=== PATIENT | male | born 1950 | race Two or more races ===

== ENCOUNTER 2024-09-01 00:13 | Inpatient (IN) | payer OTHER ==
[~2024-09-01] VITALS: Ht 160 cm; Wt 71.9 kg
[2024-09-01] VITALS (7 sets, daily range): BP systolic 134–146; BP diastolic 62–71; PULSE 51–85; RESP 17–20; TEMP 97.8–97.9; O2SAT 97–100
--- NOTE | 2024-09-01 00:44 | ED.PDOC ---
GI ASSESSMENT HPI Comments 74 year old male presents to the ED via EMS with a chief complaint of abdominal pain onset 3 days. Per EMS, patient is transferred from [facility] for cardiac workup. Patient went to [facility] due to abdominal pain radiating to chest as well as nausea, poor appetite for the past 3 days. For the past 2 weeks, patient has been experiencing bilateral eye itchiness, tried OTC eye drops with no improvement of symptoms. No other symptoms or modifying factors present at this time. Chief Complaint: Abdominal Pain Time Seen by MD: 00:35 Reviewed Notes: Medications, Allergies Allergies: Coded Allergies: Penicillins (Verified Allergy, Unknown, 09/01/24) Information Source: Patient, Emergency Med Personnel Mode of Arrival: EMS Timing: Days Duration: Since onset Prehospital treatment: None Quality: Sharp Severity: Moderate Recent: None Recent Hx of: None Pain Location: RUQ, None Associated sign and symptoms: Nausea, Abdominal Pain Past Medical History PAST MEDICAL HISTORY: Denies Surgical History: Denies all surgeries Family History Family History: Reviewed,noncontributory to illness, No family hx of Cancer, No family hx of DM, No family hx of Heart jolie, No family hx of HTN, No family hx ofKidney jolie, No family hx of Liver jolie, No family hx of Lung jolie, No family hx of Stroke Social History Smoker: Non-Smoker Alcohol: Denies ETOH Use Drugs: Denies Drug Use Lives In: Home Constitutional: denies: chills, diaphoresis, fatigue, fever, malaise, sweats, weakness, others EENTM: denies: blurred vision, double vision, ear bleeding, ear discharge, ear drainage, ear pain, ear ringing, eye pain, eye redness, hearing loss, mouth pain, mouth swelling, nasal discharge, nose bleeding, nose congestion, nose pain, photophobia, tearing, throat pain, throat swelling, voice changes, others Respiratory: denies: cough, hemoptysis, orthopnea, SOB at rest, shortness of breath, SOB with excertion, stridor, wheezing, others Cardiovascular: reports: chest pain; denies: dizzy spells, diaphoresis, Dyspnea on exertion, edema, irregular heart beat, left arm pain, lightheadedness, palpitations, PND, syncope, others Gastrointestinal: reports: abdominal pain, nausea, poor appetite; denies: abdomen distended, blood streaked bowels, constipated, diarrhea, dysphagia, difficulty swallowing, hematemesis, melena, poor fluid intake, rectal bleeding, rectal pain, vomiting, others Genitourinary: denies: burning, dysuria, flank pain, frequency, hematuria, incontinence, penile discharge, penile sore, pain, testicle pain, testicle swelling, urgency, others Neurological: denies: dizziness, fainting, headache, left sided numbness, left sided weakness, numbness, paresthesia, pre-existing deficit, right sided numbness, right sided weakness, seizure, speech problems, tingling, tremors, weakness, others Musculoskeletal: denies: back pain, gout, joint pain, joint swelling, muscle pain, muscle stiffness, neck pain, others Integumetry: denies: bruises, change in color, change in hair/nails, dryness, laceration, lesions, lumps, rash, wounds, others Allergic/Immunocompromised: denies: Difficulty Healing, Frequent Infections, Hives, Itching, others Hematologic/Lymphatic: denies: anemia, blood clots, easy bleeding, easy bruising, swollen glands, others Endocrine: denies: excessive hunger, excessive sweating, excessive thirst, excessive urination, flushing, intolerance to cold, intolerance to heat, unexplained weight gain, unexplained weight loss, others Psychiatric: denies: anxiety, bipolar disorder, depression, hopeless, panic disorder, schizophrenia, sleepless, suicidal, others All Other Systems: Reviewed and Negative Physical Exam General Appearance: Normal HEENT: Normal ENT Inspection, Pharynx Normal, TMs Normal Neck: Full Range of Motion, Non-Tender, Normal, Normal Inspection Respiratory: Chest Non-Tender, Lungs Clear, No Accessory Muscle Use, No Respiratory Distress, Normal Breath Sounds Cardiovascular: No Edema, No JVD, No Murmur, No Gallop, Normal Peripheral Pulses, Regular Rate/Rhythm Breast Exam: Deferred Gastrointestinal: No Organomegaly, Non Tender, No Pulsatile Mass, Normal Bowel Sounds, Soft Genitalia: Deferred Pelvic: Deferred Rectal: Deferred Extremities: No calf tenderness, Normal capillary refill, Normal inspection, Normal range of motion, Non-tender, No pedal edema Musculoskeletal : Apperance: Normal Neurologic: Alert, 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 Was a procedure done?: No GI differential Dx Differential Diagnosis: Gastritis/PUD, Gastroenteritis, Electrolyte Imbalance X-Ray, Labs, Meds, VS Vital Signs Date Time Temp Pulse Resp B/P (MAP) Pulse Ox O2 Delivery O2 Flow Rate FiO2 09/01/24 01:15 74 20 100 Room Air* 0 21 09/01/24 01:00 98.3 74 20 135/56 (82) 100 98.3 09/01/24 00:35 97.9 79 18 136/69 (91) 97 97.9 09/01/24 00:24 58 Lab Test 09/01/24 01:40 09/01/24 00:44 Range/Units Troponin I High Sensitivity 1326 *H 1294 *H </=54 ng/L White Blood Count 16.5 H 4.4-10.8 10^3/uL Red Blood Count 3.36 L 4.5-5.90 10^6/uL Hemoglobin 10.4 L 13.5-17.5 g/dL Hematocrit 31.8 L 41.0-53.0 % Mean Corpuscular Volume 94.6 80.0-100.0 fL Mean Corpuscular Hemoglobin 31.0 28.0-32.0 pg Mean Corpuscular Hemoglobin Concent 32.7 32.0-36.0 g/dL Red Cell Distribution Width 15.1 H 11.8-14.3 % Platelet Count 310 140-450 10^3/uL Mean Platelet Volume 7.5 6.9-10.8 fL Neutrophils (%) (Auto) 84.5 H 37.0-80.0 % Lymphocytes (%) (Auto) 7.4 L 10.0-50.0 % Monocytes (%) (Auto) 8.0 0.0-12.0 % Eosinophils (%) (Auto) 0.0 0.0-7.0 % Basophils (%) (Auto) 0.1 0.0-2.0 % Neutrophils # (Auto) 13.9 H 1.6-8.6 10 ^3/uL Lymphocytes # (Auto) 1.2 0.4-5.4 10 ^3/uL Monocytes # (Auto) 1.3 0-1.3 10 ^3/uL Eosinophils # (Auto) 0 0-0.8 10 ^3/uL Basophils # (Auto) 0 0-0.2 10 ^3/uL Nucleated Red Blood Cells 0.0 % Prothrombin Time 11.3 9.3-11.8 sec Prothrombin Time INR 1.07 0.9-1.15 Activated Partial Thromboplast Time 33.9 24.5-34.5 SEC Sodium Level 142 136-145 mmol/L Potassium Level 3.8 3.5-5.1 mmol/L Chloride Level 108 H 98-107 mmol/L Carbon Dioxide Level 22 20-31 mmol/L Anion Gap 12 5-15 Blood Urea Nitrogen 20 9-23 mg/dL Creatinine 0.61 L 0.700-1.30 mg/dL Glomerular Filtration Rate Calc 101 >90 mL/min BUN/Creatinine Ratio 32.8 H 10.0-20.0 Serum Glucose 159 H 74-106 mg/dL Lactic Acid Level 1.7 0.4-2.0 mmol/L Calcium Level 9.2 8.7-10.4 mg/dL Total Bilirubin 0.5 0.2-1.0 mg/dL Aspartate Amino Transferase (AST) 17 13-40 U/L Alanine Aminotransferase (ALT) 18 7-40 U/L Alkaline Phosphatase 76 46-116 U/L Total Protein 7.1 5.7-8.2 g/dL Albumin 3.9 3.2-4.8 g/dL Current Medications Medications (Trade) Dose Ordered Sig/Elier Route Start Time Stop Time Status Last Admin Sodium Chloride 1,000 ml @ 1,000 mls/hr Q1H ONCE IV 09/01/24 00:45 09/01/24 01:44 DC 09/01/24 02:00 Heparin Sodium (Porcine) 4,000 units ONCE ONCE IV 09/01/24 01:00 09/01/24 01:01 DC 09/01/24 01:57 Heparin Sodium/ Dextrose 250 ml @ 8 mls/hr Q24H IV 09/01/24 01:00 09/01/24 01:59 Time of 1ST Reevaluation: 01:05 Reevaluation 1ST: Unchanged Patient Education/Counseling: Diagnosis, Treatment, Prognosis Family Education/Counseling: No Family Present SEPSIS Sepsis Screen Physician Orders Urinalysis (09/01/24 00:32) Ct Ab Pel Wo Con-No Oral Or Iv (09/01/24 00:32) Troponin-I Hs (09/01/24 03:32) Order Routine Aptt (09/01/24 00:55) Platelet Monitoring (09/01/24 00:58) Heparin Per Standardized Proce (09/01/24 00:58) Discontinue All Im Injections (09/01/24 00:58) Heparin Drip/D5w 100units/Ml (09/01/24 01:00) Stat Ekg For Chest Pain (09/01/24 00:58) PTPTT (09/01/24 08:00) Electrocardigram (09/01/24 02:45) Vital Signs Date Time Temp Pulse Resp B/P (MAP) Pulse Ox O2 Delivery O2 Flow Rate FiO2 09/01/24 01:15 74 20 100 Room Air* 0 21 09/01/24 01:00 98.3 74 20 135/56 (82) 100 98.3 09/01/24 00:35 97.9 79 18 136/69 (91) 97 97.9 09/01/24 00:24 58 Laboratory Tests Test 09/01/24 00:44 Lactic Acid Level 1.7 mmol/L (0.4-2.0) White Blood Count 16.5 10^3/uL (4.4-10.8) H Medications Medications Dose Ordered Sig/Elier Route Start Time Stop Time Status Last Admin Dose Admin Heparin Sodium (Porcine) 4,000 units ONCE ONCE IV 09/01/24 01:00 09/01/24 01:01 DC 09/01/24 01:57 Heparin Sodium/ Dextrose 250 ml @ 8 mls/hr Q24H IV 09/01/24 01:00 09/01/24 01:59 Sodium Chloride 1,000 ml @ 1,000 mls/hr Q1H ONCE IV 09/01/24 00:45 09/01/24 01:44 DC 09/01/24 02:00 Departure 1 Departure Time of Disposition: 03:03 ([place] authorization to admit at [facility] [phone].Patient was a transfer from outside hospital for NSTEMI and concern for acute cholecystitis. Patient had an ultrasound performed at the outside hospital that reportedly did not have acute cholecystitis. Patient is still having right upper quadrant pain elevated troponins. We will start a heparin drip and admit patient for further workup) Impression: Primary Impression: NSTEMI (non-ST elevated myocardial infarction) Additional Impressions: Right upper quadrant pain Cholelithiasis Qualified Codes: K80.00 - Calculus of gallbladder with acute cholecystitis without obstruction Disposition: ADMITTED INPATIENT Admit to: Med Surg Condition: Guarded Critical Care Note Critical Care Time?: Yes Critical care comment: NSTEMI Authorized and Performed by: Devora Michele MD Total critical care time: Approximately 44 minutes Due to a high probability of clinically significant, life threatening deterioration, the patient required my highest level of preparedness to intervene emergently and I personally spent this critical care time directly and personally managing the patient. This critical care time included obtaining a h istory; examining the patient; pulse oximetry; ordering and review of studies; arranging urgent treatment with development of a management plan; evaluation of patient's response to treatment; frequent reassessment; and, discussions with other providers. This critical care time was performed to assess and manage the high probability of imminent, life-threatening deterioration that could result in multi-organ failure. It was exclusive of separately billable procedures and treating other patients and teaching time. Please see my other sections and the rest of the note for further information on patient assessment and treatment. Stability Stability form required: No I personally scribed for DEVORA MICHELE MD ([email or web address]) on 09/01/24 at 00:44. Electronically submitted by Monica Llanes ([email or web address]). DEVORA MICHELE MD Sep 01, 2024 00:44
[2024-09-01] MEDS: ONDANSETRON HCL 4 MG/2 ML VIAL IV ONE ×2 (00:45→12:24)
[2024-09-01] MEDS: MORPHINE SULFATE 4 MG/ML SYR/VIAL IV ONE (00:45)
[2024-09-01 00:55] LABS: Hematocrit 31.8 % (41.0-53.0); Hemoglobin 10.4 g/dL (13.5-17.5); Mean Corpuscular Hemoglobin 31.0 pg (28.0-32.0); Mean Corpuscular Volume 94.6 fL (80.0-100.0); Nucleated Red Blood Cells % 0.0 %
[2024-09-01 01:14] LABS: Alanine Aminotransferase 18 U/L (7-40); Albumin 3.9 g/dL (3.2-4.8); Alkaline Phosphatase 76 U/L (46-116); Anion Gap 12 (5-15); BUN/Creatinine Ratio 32.8 (10.0-20.0); Blood Urea Nitrogen 20 mg/dL (9-23); Calcium 9.2 mg/dL (8.7-10.4); Carbon Dioxide 22 mmol/L (20-31); Potassium 3.8 mmol/L (3.5-5.1); Sodium 142 mmol/L (136-145); Total Protein 7.1 g/dL (5.7-8.2)
[2024-09-01 01:15] LABS: Bilirubin, Total 0.5 mg/dL (0.2-1.0)
[2024-09-01 01:20] LABS: INR 1.07 (0.9-1.15); Partial Thromboplastin Time 33.9 SEC (24.5-34.5); Prothrombin Time 11.3 sec (9.3-11.8)
[2024-09-01 01:24] LABS: Chloride 108 mmol/L (98-107); Glucose 159 mg/dL (74-106)
[2024-09-01] MEDS: HEPARIN SODIUM (PORCINE) 5000 UNITS/ML 1ML VIAL IV ONE (01:57)
[2024-09-01] MEDS: HEPARIN DRIP/D5W 100UNITS/ML 250 ML IV SCH ×2 (01:59→09:36)
[2024-09-01] MEDS: SODIUM CHLORIDE 0.9% 1,000 ML IV ONE (02:00)
--- NOTE | 2024-09-01 02:46 | DVH ---
Exam: CT CT AB PEL WO CON-NO ORAL OR IV History: ruq pain Comparison Study: None TECHNIQUE: Multidetector CT of the abdomen and pelvis was performed from lung bases to pubic symphysi s. Imaging was performed without IV contrast. Axial, coronal and sagittal multiplanar reformats were obtained from the axial data set by the technologist. Radiation optimization: All CT scans at this facility use at least one of these dose optimization carli hniques: automated exposure control mA and/or kV adjustment per patient size (includes targeted exam s where dose is matched to clinical indication) or iterative reconstruction. Radiation Dose Information: CT Dose: CTDI volume is 9.2 mGy. Dose-length product is 599.3 mGy*cm FINDINGS: Evaluation of solid organs is limited due to lack of intravenous contrast use. Imaged portions of the lung bases appear unremarkable. There are marked coronary artery calcificatio ns. Small hiatal hernia. The liver, spleen, pancreas and adrenal glands appear unremarkable. Retained contrast is noted in the renal collecting system. There is no evidence of hydronephrosis. The gallbladder is mildly distended measuring 3.7 cm in diameter. Possible sludge or polyp at the gal lbladder neck. Common bile duct is mildly prominent measuring 0.8 cm. No evidence of bowel obstruction or focal bowel wall thickening. Large amount of intracolonic stool. Fat containing umbilical hernia. Urinary bladder is collapsed and presence of a Gastelum catheter. Courtney re degenerative changes of the lumbar spine without suspicious osseous lesion. IMPRESSION: 1. Prominent gallbladder with either sludge or polyp in the gallbladder neck. Right upper quadrant u ltrasound is recommended to assess for cholecystitis. 2. Large amount of intracolonic stool. 3. Severe coronary artery calcifications.
--- NOTE | 2024-09-01 05:54 | ECG ---
[facility] Test Date: 2024-09-01 Test Time: 00:24:17 Pat Name: GILMAR ELLSWORTH Department: ED Room: 0218T Gender: M Workforce Planner: JUDITH : 1950 Requested By: DEVORA RUIZ Order Number: [id number] Reading MD: Willian Eid Measurements Intervals [place] Rate: 58 P: 15 UT: 422 QRS: 17 QRSD: 119 T: 175 QT: 435 QTc: 428 Interpretive Statements Prolonged UT intervalSinus rhythm Nonspecific intraventricular conduction delay Probable anteroseptal infarct, old Repol abnrm suggests ischemia, lateral leads Electronically Signed On 09-02-2024 10:29:29 PDT by Willian Eid Please click the below link to view image of tracing.
[2024-09-01 07:27] LABS: Urine Protein, UAD 1+ (Negative)
--- NOTE | 2024-09-01 08:17 | DVH ---
INDICATION: r/o tiffanie TECHNIQUE: Multiple real-time sonographic images of the abdomen were obtained. COMPARISON: None FINDINGS: The liver is homogenous in echogenicity. The liver measures 14cm. No intrahepatic biliary ductal dilatation is noted. The gallbladder wall measures 0.4 cm and is unremarkable. Gallstones are noted .v No pericholecystic fluid is noted. The right kidney measures 12cm. No hydronephrosis. The pancreas is not well visualized due to obscuration from bowel gas. The visualized portions of the IVC and aorta are grossly unremarkable. IMPRESSION: Gallstones.
[2024-09-01 08:42] LABS: INR 1.12 (0.9-1.15); Partial Thromboplastin Time 48.0 SEC (24.5-34.5); Prothrombin Time 11.7 sec (9.3-11.8)
--- NOTE | 2024-09-01 09:32 | CONS ---
Pharmacy Clinical Information: INCREASE HEPARIN DRIP RATE FROM 800 UNITS/HR TO 1000 UNITS/HR PER APTT OF 48.0 (SUBTHERAPEUTIC) NEXT APTT DRAW SCHEDULED FOR 1530 PER RX PROTOCOL YUE HAWK PHARMACIST Sep 01, 2024 09:32
--- NOTE | 2024-09-01 10:24 | DVHINCON2 ---
DANIS QIU [facility] 09/01/24 1024: Date Seen: Sep 01, 2024 Referring Physician NASH Tuttle Reason for Consultation Elevated troponin History of Present Illness This is a 74-year-old male patient who presents with chief complaint of abdominal pain for three days. The patient was initially seen at [facility] and was transferred to this facility for higher level of care. The patient reports his abdominal pain began three days ago with associated diarrhea. He describes the pain as sharp in nature and located to his epigastric region. He decided to go to the emergency room for further evaluation. While in the emergency room, the patient states that the pain began radiating up into his chest area. The patient states that the pain initially began in his umbilical region traveled to his right abdomen and up to the right side of his chest. At the time of assessment, he denies any pain. Cardiology h as been consulted at this time for elevated troponin. Initial twelve lead electrocardiogram reveals sinus bradycardia with first-degree AV block and nonspecific ST changes to lateral leads. Initial troponin level of 1294ng/L. Significant past medical history includes hypertension, dyslipidemia, type 2 diabetes mellitus, chronic anemia, and thyroid disease. The patient denies fo llowing up with a personal care attendant in the outpatient setting. Past Medical History Past medical history reviewed. No other significant than mentioned above. Past Surgical History Right groin skin removal due to infection??---the patient is unsure of the name of the procedure Family History Family history reviewed. Social History Denies the use of tobacco, alcohol or illicit drugs. Allergies: Coded Allergies: Penicillins (Verified Allergy, Unknown, 09/01/24) Home Meds Unable to Obtain Active Prescriptions or Reported Meds Home Meds Home medications reviewed. Current Medications Current Medications Medications (Trade) Dose Ordered Sig/Elier Route PRN Reason Start Time Stop Time Status Last Admin Heparin Sodium/ Dextrose 250 ml @ 8 mls/hr Q24H IV 09/01/24 01:00 09/01/24 09:28 DC 09/01/24 01:59 Heparin Sodium/ Dextrose 250 ml @ 10 mls/hr Q24H IV 09/01/24 09:30 09/01/24 09:36 Review of Systems Constitutional: No symptom reported Ears, Nose, & Throat: No symptom reported Eyes: No symptom reported Neurological: No symptoms reported Pulmonary/Respiratory: No symptoms reported Cardiovascular: No symptom reported Gastrointestinal: Abdominal pain, nausea Genitourinary: No symptom reported Musculoskeletal: No symptom reported Skin: No symptom reported Psychiatric: No symptom reported Endocrine: No symptom reported Hematologic/Lymphatic: No symptom reported Vital Signs Vital Signs Date Time Temp Pulse Resp B/P (MAP) Pulse Ox O2 Delivery O2 Flow Rate FiO2 09/01/24 08:01 68 09/01/24 08:00 98.1 19 131/47 (75) 99 98.1 09/01/24 08:00 Room Air* 0 21 Physical Exam General Appearance: Cooperative. Well-developed. Well-nourished. No acute distress. Pulmonary/Respiratory: Clear, bilateral breaths sounds. Cardiovascular/Chest: Regular rate and rhythm. Peripheral Pulses: 2+ Radial (R). 2+ Radial (L). 2+ Pedal (R). 2+ Pedal (L) Abdominal Exam: Normal bowel sounds. Ankle Exam: Negative ankle edema Lower extremities: Negative lower extremity edema Neuro/Mental Status: A/OX4, coherent. Thoughts/Psych: Normal thought pattern. Appropriate mood and affect. Good judgment and insight. Appearance: No acute distress. Skin Exam: Right groin wound, oozing. Skin warm and dry Labs/Diagnostic Data Labs Test 09/01/24 08:11 09/01/24 07:01 09/01/24 03:44 09/01/24 00:44 Range/Units Prothrombin Time 11.7 9.3-11.8 sec Prothrombin Time INR 1.12 0.9-1.15 Activated Partial Thromboplast Time 48.0 H 24.5-34.5 SEC D-Dimer, Quantitative 0.71 H 0.0-0.49 mg/L FEU Urine Color Yellow Yellow Urine Clarity Clear Clear Urine pH 5.5 5.0-9.0 Urine Specific [place] 1.035 1.001-1.035 Urine Protein 1+ H Negative Urine Ketones 2+ H Negative Urine Blood 1+ H Negative /uL Urine Nitrite Negative Negative Urine Bilirubin Negative Negative Urine Urobilinogen Normal Negative mg/dL Urine Leukocyte Esterase 1+ Negative /uL Urine RBC 12 0 - 3 /hpf Urine Microscopic WBC 10 H 0-3 /HPF Urine Squamous Epithelial Cells None seen <5 /hpf Urine Bacteria None seen None Seen /hpf Urine Mucus Few None Seen Urine Glucose Normal Normal mg/dL Troponin I High Sensitivity 953 *H </=54 ng/L White Blood Count 16.5 H 4.4-10.8 10^3/uL Red Blood Count 3.36 L 4.5-5.90 10^6/uL Hemoglobin 10.4 L 13.5-17.5 g/dL Hematocrit 31.8 L 41.0-53.0 % Mean Corpuscular Volume 94.6 80.0-100.0 fL Mean Corpuscular Hemoglobin 31.0 28.0-32.0 pg Mean Corpuscular Hemoglobin Concent 32.7 32.0-36.0 g/dL Red Cell Distribution Width 15.1 H 11.8-14.3 % Platelet Count 310 140-450 10^3/uL Mean Platelet Volume 7.5 6.9-10.8 fL Neutrophils (%) (Auto) 84.5 H 37.0-80.0 % Lymphocytes (%) (Auto) 7.4 L 10.0-50.0 % Monocytes (%) (Auto) 8.0 0.0-12.0 % Eosinophils (%) (Auto) 0.0 0.0-7.0 % Basophils (%) (Auto) 0.1 0.0-2.0 % Neutrophils # (Auto) 13.9 H 1.6-8.6 10 ^3/uL Lymphocytes # (Auto) 1.2 0.4-5.4 10 ^3/uL Monocytes # (Auto) 1.3 0-1.3 10 ^3/uL Eosinophils # (Auto) 0 0-0.8 10 ^3/uL Basophils # (Auto) 0 0-0.2 10 ^3/uL Nucleated Red Blood Cells 0.0 % Sodium Level 142 136-145 mmol/L Potassium Level 3.8 3.5-5.1 mmol/L Chloride Level 108 H 98-107 mmol/L Carbon Dioxide Level 22 20-31 mmol/L Anion Gap 12 5-15 Blood Urea Nitrogen 20 9-23 mg/dL Creatinine 0.61 L 0.700-1.30 mg/dL Glomerular Filtration Rate Calc 101 >90 mL/min BUN/Creatinine Ratio 32.8 H 10.0-20.0 Serum Glucose 159 H 74-106 mg/dL Lactic Acid Level 1.7 0.4-2.0 mmol/L Calcium Level 9.2 8.7-10.4 mg/dL Total Bilirubin 0.5 0.2-1.0 mg/dL Aspartate Amino Transferase (AST) 17 13-40 U/L Alanine Aminotransferase (ALT) 18 7-40 U/L Alkaline Phosphatase 76 46-116 U/L Total Protein 7.1 5.7-8.2 g/dL Albumin 3.9 3.2-4.8 g/dL Assessment NSTEMI, rule out coronary artery disease Rule out structural heart disease Hypertension Dyslipidemia Cholelithiasis Thyroid disease Type 2 diabetes mellitus Plan/Recommendation We will proceed with the following plan/recommendations (): * Transthoracic echocardiogram to evaluate cardiac function * Chest pain protocol * HEART score: 8 points (high score) * LISA score: 3 points * Continue heparin drip per ACS protocol * Lipid-lowering agent * Close Cardiac surveillance Patient seen and examined at bedside with . Given the patient's elevated troponin, comorbidities, and 12 lead electrocardiogram, the patient may benefit from a coronary angiogram with left heart catheterization. The procedure was discussed with the patient in full detail including risks and benefits. Risks include but are not limited to bleeding, contrast-induced nephropathy, stroke, and even . The patient understands and is agreeable to undergo the procedure. We will schedule the patient at soonest availability. The patient is currently also being worked up for acute cholecystitis. Consider appropriate consultations for further workup. Thank you for allowing us to care for this patient. Please call with any questions or concerns. Critical care time spent: 44 minutes This medical document was created using an electronic medical record system with voice recognition software and computerized dictation system. Although this document has been carefully reviewed, there might still be some phonetic and typographical errors. Occasional wrong-word or ``sound-alike substitutions may have occurred due to the inherent limitations of voice recognition software. These areas are purely typographical due to imperfections of the software programs and do not reflect any compromise in the patient's medical care. Please read the chart carefully and recognize, using context, where these substitutions have occurred. Plan discussed with: Patient NYHA Physical activity limitations: NA Date of Service: Sep 01, 2024 Billing Provider: DANIS QIU Cardiology Common Codes: 49612-[id number] INP/OBS CARE (High) Cardiology Consultation Codes: 19262-LODKBMCOI CONSULT <45MIN LUIS ENRIQUE CHAMBERLAIN MD 09/01/24 1830: Allergies: Coded Allergies: Penicillins (Verified Allergy, Unknown, 09/01/24) Home Meds Unable to Obtain Active Prescriptions or Reported Meds Plan/Recommendation r/o acute tiffanie, no surgeon has been consulted, this needs to be done yair, C for calcium,nstemi and abnormal ecg avoid avn agents heparin gtt high risk pt , he agrees to plan with informed consent Plan discussed with: Patient DANIS QIU Sep 01, 2024 10:24 LUIS ENRIQUE CHAMBERLAIN MD Sep 01, 2024 18:30
[2024-09-01] MEDS ORDERED: ONDANSETRON HCL 4 MG/2 ML VIAL IV PRN (10:45)
[2024-09-01] MEDS ORDERED: MORPHINE SULFATE 4 MG/ML SYR/VIAL IV PRN (10:45)
[2024-09-01] MEDS ORDERED: MORPHINE SULFATE INJ 2 MG/ml SYRG IV PRN (10:45)
[2024-09-01] MEDS ORDERED: NITROGLYCERIN 0.4 MG SL TAB SL PRN ×2 (10:45)
--- NOTE | 2024-09-01 10:55 | DVHHP2 ---
History of Present Illness Reason for Visit: Abdominal pain with nausea and chest pain History of Present Illness Tani Easton is a 74-year-old male with past medical history of hypertension, hyperlipidemia, diabetes, and right groin surgery for a past infection (patient does not recall when) who presents to the ED with abdominal pain with nausea and poor appetite for 3 days as well as chest pain. Patient states that he was transferred from [place] and was experiencing the symptoms. However he states upon examination there is no chest pain or abdominal pain at this time. Patient reports that he is wheelchair-bound since January of 2024. Patient denies any shortness of breath, fever, chills, lightheadedness, weakness, dizziness, recent trauma or injury, recent ingestion of spoiled food, recent travels, recent sick contacts, vomiting, diarrhea, or lightheadedness. Cardiovascular: HTN, hyperipidemia Endocrine: Diabetes Past Surgical History: Other (Right leg groin surgery for infection patient reports) Family History: DM, Other (Mom and dad with diabetes) Smoke: No ALCOHOL: none Drugs: None Lives: with Family Domestic Violence: Neg Review of Systems Cardiovascular: Chest Pain Gastrointestinal: Nausea, Abdominal Pain Allergies: Coded Allergies: Penicillins (Verified Allergy, Unknown, 09/01/24) Medications Current Medications Medications Dose Ordered Sig/Elier Route Start Time Stop Time Status Last Admin Dose Admin Heparin Sodium/ Dextrose 250 ml @ 10 mls/hr Q24H IV 09/01/24 09:30 09/01/24 09:36 10 MLS/HR Ceftriaxone Sodium 50 ml @ 100 mls/hr DAILY@09 IV 09/01/24 10:45 UNV Aspirin 81 mg DAILY PO 09/02/24 10:00 UNV Atorvastatin Calcium 40 mg HS PO 09/01/24 22:00 UNV Morphine Sulfate 2 mg Q30MP PRN IV 09/01/24 10:45 UNV Acetaminophen 650 mg Q6HP PRN PO 09/01/24 10:45 UNV Nitroglycerin 0.4 mg Q5MINP PRN SL 09/01/24 10:45 UNV Ondansetron HCl 4 mg Q4HP PRN IV 09/01/24 10:45 UNV Nitroglycerin 0.4 mg Q5MINP PRN SL 09/01/24 10:45 UNV Morphine Sulfate 2 mg Q30M PRN IV 09/01/24 10:45 UNV Exam Vital Signs Vital Signs Date Time Temp Pulse Resp B/P (MAP) Pulse Ox O2 Delivery O2 Flow Rate FiO2 09/01/24 08:01 68 09/01/24 08:00 98.1 19 131/47 (75) 99 98.1 09/01/24 08:00 Room Air* 0 21 General Appearance: Alert, Oriented X3, Cooperative, No acute distress HEENT: Atraumatic, PERRLA, EOMI, Mucous membr. moist/pink Respiratory: Clear to auscultation, Normal air movement Cardiovascular: Normal S1, Normal S2 Abdominal: Normal bowel sounds, Soft Extremities: No edema, Normal pulses Skin: No significant lesion Neuro: Normal gait, Normal speech, Strength at 5/5 X4 ext, Normal tone, Sensation intact Psych/Mental Status: Mental status NL, Mood NL Labs/Xrays Labs Test 09/01/24 10:34 09/01/24 08:11 09/01/24 07:01 09/01/24 03:44 Range/Units Prothrombin Time 11.7 9.3-11.8 sec Prothrombin Time INR 1.12 0.9-1.15 Activated Partial Thromboplast Time 48.0 H 24.5-34.5 SEC D-Dimer, Quantitative 0.71 H 0.0-0.49 mg/L FEU Urine Color Yellow Yellow Urine Clarity Clear Clear Urine pH 5.5 5.0-9.0 Urine Specific [place] 1.035 1.001-1.035 Urine Protein 1+ H Negative Urine Ketones 2+ H Negative Urine Blood 1+ H Negative /uL Urine Nitrite Negative Negative Urine Bilirubin Negative Negative Urine Urobilinogen Normal Negative mg/dL Urine Leukocyte Esterase 1+ Negative /uL Urine RBC 12 0 - 3 /hpf Urine Microscopic WBC 10 H 0-3 /HPF Urine Squamous Epithelial Cells None seen <5 /hpf Urine Bacteria None seen None Seen /hpf Urine Mucus Few None Seen Urine Glucose Normal Normal mg/dL Troponin I High Sensitivity 953 *H </=54 ng/L Test 09/01/24 00:44 Range/Units White Blood Count 16.5 H 4.4-10.8 10^3/uL Red Blood Count 3.36 L 4.5-5.90 10^6/uL Hemoglobin 10.4 L 13.5-17.5 g/dL Hematocrit 31.8 L 41.0-53.0 % Mean Corpuscular Volume 94.6 80.0-100.0 fL Mean Corpuscular Hemoglobin 31.0 28.0-32.0 pg Mean Corpuscular Hemoglobin Concent 32.7 32.0-36.0 g/dL Red Cell Distribution Width 15.1 H 11.8-14.3 % Platelet Count 310 140-450 10^3/uL Mean Platelet Volume 7.5 6.9-10.8 fL Neutrophils (%) (Auto) 84.5 H 37.0-80.0 % Lymphocytes (%) (Auto) 7.4 L 10.0-50.0 % Monocytes (%) (Auto) 8.0 0.0-12.0 % Eosinophils (%) (Auto) 0.0 0.0-7.0 % Basophils (%) (Auto) 0.1 0.0-2.0 % Neutrophils # (Auto) 13.9 H 1.6-8.6 10 ^3/uL Lymphocytes # (Auto) 1.2 0.4-5.4 10 ^3/uL Monocytes # (Auto) 1.3 0-1.3 10 ^3/uL Eosinophils # (Auto) 0 0-0.8 10 ^3/uL Basophils # (Auto) 0 0-0.2 10 ^3/uL Nucleated Red Blood Cells 0.0 % Sodium Level 142 136-145 mmol/L Potassium Level 3.8 3.5-5.1 mmol/L Chloride Level 108 H 98-107 mmol/L Carbon Dioxide Level 22 20-31 mmol/L Anion Gap 12 5-15 Blood Urea Nitrogen 20 9-23 mg/dL Creatinine 0.61 L 0.700-1.30 mg/dL Glomerular Filtration Rate Calc 101 >90 mL/min BUN/Creatinine Ratio 32.8 H 10.0-20.0 Serum Glucose 159 H 74-106 mg/dL Lactic Acid Level 1.7 0.4-2.0 mmol/L Calcium Level 9.2 8.7-10.4 mg/dL Total Bilirubin 0.5 0.2-1.0 mg/dL Aspartate Amino Transferase (AST) 17 13-40 U/L Alanine Aminotransferase (ALT) 18 7-40 U/L Alkaline Phosphatase 76 46-116 U/L Total Protein 7.1 5.7-8.2 g/dL Albumin 3.9 3.2-4.8 g/dL INDICATION: r/o tiffanie TECHNIQUE: Multiple real-time sonographic images of the abdomen were obtained. COMPARISON: None FINDINGS: The liver is homogenous in echogenicity. The liver measures 14cm. No intrahepatic biliary ductal dilatation is noted. The gallbladder wall measures 0.4 cm and is unremarkable. Gallstones are noted .v No pericholecystic fluid is noted. The right kidney measures 12cm. No hydronephrosis. The pancreas is not well visualized due to obscuration from bowel gas. The visualized portions of the IVC and aorta are grossly unremarkable. IMPRESSION: Gallstones. Exam: CT CT AB PEL WO CON-NO ORAL OR IV History: ruq pain Comparison Study: None TECHNIQUE: Multidetector CT of the abdomen and pelvis was performed from lung bases to pubic symphysis. Imaging was performed without IV contrast. Axial, coronal and sagittal multiplanar reformats were obtained from the axial data set by the technologist. Radiation optimization: All CT scans at this facility use at least one of these dose optimization techniques: automated exposure control mA and/or kV adjustment per patient size (includes targeted exams where dose is matched to clinical indication) or iterative reconstruction. Radiation Dose Information: CT Dose: CTDI volume is 9.2 mGy. Dose-length product is 599.3 mGy*cm FINDINGS: Evaluation of solid organs is limited due to lack of intravenous contrast use. Imaged portions of the lung bases appear unremarkable. There are marked coronary artery calcifications. Small hiatal hernia. The liver, spleen, pancreas and adrenal glands appear unremarkable. Retained contrast is noted in the renal collecting system. There is no evidence of hydronephrosis. The gallbladder is mildly distended measuring 3.7 cm in diameter. Possible sludge or polyp at the gallbladder neck. Common bile duct is mildly prominent measuring 0.8 cm. No evidence of bowel obstruction or focal bowel wall thickening. Large amount of intracolonic stool. Fat containing umbilical hernia. Urinary bladder is collapsed and presence of a Gastelum catheter. Severe degenerative changes of the lumbar spine without suspicious osseous lesion. IMPRESSION: 1. Prominent gallbladder with either sludge or polyp in the gallbladder neck. Right upper quadrant ultrasound is recommended to assess for cholecystitis. 2. Large amount of intracolonic stool. 3. Severe coronary artery calcifications. Assessment/Plan Assessment/Plan Assessment NSTEMI Intractable abdominal pain rule out cholecystitis Cholelithiasis Sacral wound Leukocytosis likely due to UTI rule out sepsis Anemia Diabetes type 2 History of hypertension History of hyperlipidemia History of right leg groin infection, patient reports he had surgery Patient reports he is wheelchair-bound Plan Admit to tele Heparin drip CT abdomen and pelvis noted Antiemetics Pain management NS given in ED Wound consult EKG PT/PTT UA Lactic level Hemoglobin A1c ISS and Accu-Cheks Aspirin +statin Abdominal ultrasound D-dimer Echo TSH A1c Lipid panel UA UDS Free T4 IV antibiotics-ceftriaxone NPO per Cardiology DVT prophylaxis-patient on heparin drip PUD prophylaxis-PPIs Discussed plan of care with patient and nurse Cardiology consult [id number] Preventive counseling healthy eating habits, physical activity, and regular checkups Plan discussed with: Patient My Orders Orders - CHITO WALSH PLANT PACKER Procedure Category Date Status Time Abdomen Limited US 09/01/24 Resulted 07:18 * Cardiology Consult CONS 09/01/24 Transmitted 07:20 Ceftriaxone 1gm/50ml PHA 09/01/24 Logged D5w (Rocephin) 10:45 Admit ADMIT 09/01/24 Transmitted 10:34 Code Status CODE 09/01/24 Transmitted 10:34 Vital Signs NICK 09/01/24 In Process 10:34 Financial Health Counselor NICK 09/01/24 In Process 10:34 Aspirin Tablet PHA 09/02/24 Logged 10:00 Atorvastatin (Lipitor) PHA 09/01/24 Logged 22:00 Morphine Sulfate PHA 09/01/24 Logged Injection 10:45 Acetaminophen Tablet PHA 09/01/24 Logged (Tylenol Tablet) 10:45 Basic Metabolic Panel LAB 09/02/24 Verified 04:00 Magnesium LAB 09/02/24 Verified 04:00 Lipid Panel LAB 09/02/24 Verified 04:00 Nitroglycerin PHA 09/01/24 Logged Sublingual (Ntrostat 10:45 Ondansetron Hcl PHA 09/01/24 Logged (Zofran) 10:45 Electrocardigram EKG 09/02/24 Logged 04:00 Troponin-I Hs LAB 09/01/24 Logged 10:34 Cardiac NICK 09/01/24 In Process Rehabilitation - Outpa Nitroglycerin PHA 09/01/24 Logged Sublingual (Ntrostat 10:45 Morphine Sulfate PHA 09/01/24 Logged Injection 10:45 Notify Of Changes NICK 09/01/24 In Process From Base 10:34 [employer] [place] Supervisor For [facility] 09/01/24 In Process 24 Hours 10:34 Emergency Dysrhythmia [facility] 09/01/24 In Process Protocol 10:34 Rhythm Strips Once [facility] 09/01/24 In Process Every Shift 10:34 Oxygen By Nasal RT 09/01/24 Transmitted Cannula 10:34 Npo (Nothing By DIET 09/01/24 Transmitted Mouth) Diet Lunch Thyroid Stimulating LAB 09/01/24 Logged Hormone 10:34 Hemoglobin A1c LAB 09/01/24 In Process 10:34 Drug Screen LAB 09/01/24 In Process 10:34 Free T4 (Free LAB 09/01/24 In Process Thyroxine) 10:34 Date of Service: Sep 01, 2024 Billing Provider: CHITO WALSH Common Visit Codes: 81761-[id number] INP/OBS CARE (HIGH) Secondary Visit Codes: [id number] COUNSELING IND CHITO WALSH Sep 01, 2024 10:55
[2024-09-01 11:39] LABS: Opiate Scree,Urine Neg (NEGATIVE)
[2024-09-01 12:01] LABS: Amphetamine Screen, Urine Neg (NEGATIVE); Barbiturate Scree,Urine Neg (NEGATIVE); Benzodiazephine Screen, Urine Neg (NEGATIVE); Cannabinoid Screen, Urine Neg (NEGATIVE); Cocaine Screen, Urine Neg (NEGATIVE); Phencyclidine Screen, Urine Neg (NEGATIVE)
[2024-09-01] MEDS: cefTRIAXone 1GM/50ML D5W 50 ML IV ONE (12:19)
[2024-09-01] MEDS: MORPHINE SULFATE INJ 2 MG/ml SYRG IV ONE (12:26)
[2024-09-01 14:07] LABS: Triglycerides 71 mg/dL (< 150)
[2024-09-01 14:09] LABS: Cholesterol 112 mg/dL (< 200); HDL Cholesterol 48 mg/dL (40-59)
[2024-09-01] MEDS: PANTOPRAZOLE 40 MG/10 ML VIAL INJ IV SCH (14:57)
[2024-09-01 16:32] LABS: INR 1.12 (0.9-1.15); Partial Thromboplastin Time 57.1 SEC (24.5-34.5); Prothrombin Time 11.7 sec (9.3-11.8)
--- NOTE | 2024-09-01 18:42 | DVHSR ---
APPROVED REPORT EXAM: Two-dimensional and M-mode echocardiogram with Doppler and color Doppler. Blood Pressure: 131/47 mmHg INDICATION Chest Pain RISK FACTORS Height: 5' 3", Weight: 147 DIMENSIONS LVDd4.7 (3.8-5.7cm)LA (2D)4.0 (1.9-4.0cm)Aortic Root3.4 (2.0-3.7cm) LVDs2.9 (2.5-4.0cm)LA (MM) (1.9-4.0cm)Aortic Cusp Exc1.2 (1.5-2.0cm) EF (%) 69.0 (55-70%)Rt. Atrium4.0 (1.9-4.0cm)Asc. Aorta cm IVSd1.1 (0.7-1.1cm)RV (D) (1.8-2.4cm) PWd1.1 (0.7-1.1cm) Mitral Valve MitralMitral Stenosis E wave1.50m/sMV Mean GR.mmHg A wave0.80m/sMV Peak GR.mmHg E/A ratio1.92D MVAcm2 Aortic Valve Aortic ValveAortic Stenosis V10.80m/Shayy Mean GR.5mmHg V21.40m/Shayy Peak GR.8mmHg LVOT Diameter2.4 (1.8-2.4cm)Doppler AVA2.58cm2 Pulmonic Valve V20.70m/s Other Information Quality : Technically LimitedRhythm : Conclusion LVEF normal at 60-65%, mild diastolic dysfunction, RV normal Aortic valve right coronary cusp calcified, no hemodynamica aortic stenosis mild left and right atrial dilation mild mitral regurgtiation
[2024-09-01] MEDS: ATORVASTATIN 20 MG TAB PO SCH (21:30)
[2024-09-01 22:52] LABS: INR 1.13 (0.9-1.15); Partial Thromboplastin Time 51.4 SEC (24.5-34.5); Prothrombin Time 11.8 sec (9.3-11.8)
[2024-09-02] VITALS (11 sets, daily range): BP systolic 128–154; BP diastolic 53–78; PULSE 56–78; RESP 11–20; TEMP 97.7–98.6; O2SAT 95–100
[2024-09-02 07:09] LABS: Hematocrit 29.1 % (41.0-53.0); Hemoglobin 9.9 g/dL (13.5-17.5); Mean Corpuscular Hemoglobin 31.6 pg (28.0-32.0); Mean Corpuscular Volume 93.0 fL (80.0-100.0); Nucleated Red Blood Cells % 0.0 %
[2024-09-02 07:16] LABS: INR 1.09 (0.9-1.15); Partial Thromboplastin Time 58.9 SEC (24.5-34.5); Prothrombin Time 11.5 sec (9.3-11.8)
[2024-09-02 07:18] LABS: Potassium 3.7 mmol/L (3.5-5.1); Sodium 144 mmol/L (136-145)
[2024-09-02 07:19] LABS: Anion Gap 12 (5-15); Calcium 9.7 mg/dL (8.7-10.4); Carbon Dioxide 22 mmol/L (20-31); Chloride 110 mmol/L (98-107)
[2024-09-02 07:24] LABS: BUN/Creatinine Ratio 34.0 (10.0-20.0); Blood Urea Nitrogen 17 mg/dL (9-23); Magnesium 1.7 mg/dL (1.6-2.6); Triglycerides 92 mg/dL (< 150)
[2024-09-02 07:26] LABS: Cholesterol 114 mg/dL (< 200); HDL Cholesterol 47 mg/dL (40-59)
[2024-09-02 07:29] LABS: Glucose 113 mg/dL (74-106)
--- NOTE | 2024-09-02 07:45 | DVH ---
CHEST RADIOGRAPH Indication: procedure Technique: Single frontal view of the chest was obtained COMPARISON: None FINDINGS: Lines and Tubes: None Lungs: Increased interstitial prominence Pleura: No effusion. No pneumothorax. Cardiomediastinal contours: Unremarkable Bones: Unremarkable IMPRESSION: Mild pulmonary vascular congestion or viral pneumonia
[2024-09-02] MEDS: cefTRIAXone 1GM/50ML D5W 50 ML IV SCH (09:29)
--- NOTE | 2024-09-02 11:03 | DVHINCON2 ---
Date of service: Sep 02, 2024 History of Present Illness 74-year-old male complaining of three day history of suprapubic abdominal pain radiating to his right upper quadrant and now to his left chest area. Patient denies any fevers, chills, nausea or vomiting. On admission was noted that patient's troponins were elevated and currently being evaluated for an NSTEMI. Past Medical History Hypertension. Hyperlipidemia. Diabetes. Past Surgical History Right groin surgery. Family History: Diabetes mellitus G8 MOTHER G8 FATHER Family History Noncontributory Social History No alcohol, tobacco, IV drug use Allergies: Coded Allergies: Penicillins (Verified Allergy, Unknown, 09/01/24) Home Meds Unable to Obtain Active Prescriptions or Reported Meds Current Medications Current Medications Medications (Trade) Dose Ordered Sig/Elier Route PRN Reason Start Time Stop Time Status Last Admin Ceftriaxone Sodium 50 ml @ 100 mls/hr DAILY@09 IV 09/02/24 09:00 09/02/24 09:29 Atorvastatin Calcium (Lipitor) 40 mg HS PO 09/01/24 22:00 09/01/24 21:30 Pantoprazole Sodium (Protonix) 40 mg DAILY IV 09/01/24 13:00 09/02/24 09:30 Vital Signs Vital Signs Date Time Temp Pulse Resp B/P (MAP) Pulse Ox O2 Delivery O2 Flow Rate FiO2 09/02/24 09:00 98.6 63 18 142/71 (94) 99 98.6 09/01/24 20:00 Room Air* 0 21 Physical Exam GEN: Age-appropriate male in no acute distress. Alert. HEENT: Normocephalic atraumatic. Moist mucous membranes. Anicteric sclerae. CV: RRR Respiratory: CTAB ABD: Currently soft. Nontender nondistended. Abdominal ultrasound: Cholelithiasis. Normal gallbladder wall. No pericholecystic fluid. No biliary dilatation. Labs/Diagnostic Data Labs Test 09/02/24 06:25 09/01/24 10:55 09/01/24 10:34 09/01/24 08:11 Range/Units White Blood Count 9.4 # 4.4-10.8 10^3/uL Red Blood Count 3.12 L 4.5-5.90 10^6/uL Hemoglobin 9.9 L 13.5-17.5 g/dL Hematocrit 29.1 L 41.0-53.0 % Mean Corpuscular Volume 93.0 80.0-100.0 fL Mean Corpuscular Hemoglobin 31.6 28.0-32.0 pg Mean Corpuscular Hemoglobin Concent 33.9 32.0-36.0 g/dL Red Cell Distribution Width 14.7 H 11.8-14.3 % Platelet Count 271 140-450 10^3/uL Mean Platelet Volume 8.9 6.9-10.8 fL Neutrophils (%) (Auto) 73.2 37.0-80.0 % Lymphocytes (%) (Auto) 16.4 10.0-50.0 % Monocytes (%) (Auto) 8.7 0.0-12.0 % Eosinophils (%) (Auto) 1.0 0.0-7.0 % Basophils (%) (Auto) 0.7 0.0-2.0 % Neutrophils # (Auto) 6.9 1.6-8.6 10 ^3/uL Lymphocytes # (Auto) 1.6 0.4-5.4 10 ^3/uL Monocytes # (Auto) 0.8 0-1.3 10 ^3/uL Eosinophils # (Auto) 0.1 0-0.8 10 ^3/uL Basophils # (Auto) 0.1 0-0.2 10 ^3/uL Nucleated Red Blood Cells 0.0 % Prothrombin Time 11.5 9.3-11.8 sec Prothrombin Time INR 1.09 0.9-1.15 Activated Partial Thromboplast Time 58.9 H 24.5-34.5 SEC Sodium Level 144 136-145 mmol/L Potassium Level 3.7 3.5-5.1 mmol/L Chloride Level 110 H 98-107 mmol/L Carbon Dioxide Level 22 20-31 mmol/L Anion Gap 12 5-15 Blood Urea Nitrogen 17 9-23 mg/dL Creatinine 0.50 L 0.700-1.30 mg/dL Glomerular Filtration Rate Calc 107 >90 mL/min BUN/Creatinine Ratio 34.0 H 10.0-20.0 Serum Glucose 113 H 74-106 mg/dL Calcium Level 9.7 8.7-10.4 mg/dL Magnesium Level 1.7 1.6-2.6 mg/dL Triglycerides Level 92 < 150 mg/dL Cholesterol Level 114 < 200 mg/dL LDL Cholesterol 48 < 100 mg/dL HDL Cholesterol 47 40-59 mg/dL Troponin I High Sensitivity 493 *H </=54 ng/L Thyroid Stimulating Hormone (TSH) 1.48 0.55-4.78 uIU/mL Free Thyroxine (T4) Calculated 1.28 0.89-1.76 ng/dL Hemoglobin A1c 5.0 <5.7 % A1C Urine Opiates Screen Neg NEGATIVE Urine Fentanyl Screen Neg NEGATIVE Urine Barbiturates Screen Neg NEGATIVE Urine Phencyclidine Screen Neg NEGATIVE Urine Amphetamines Screen Neg NEGATIVE Urine Benzodiazepines Screen Neg NEGATIVE Urine Cocaine Screen Neg NEGATIVE Urine Cannabinoids Screen Neg NEGATIVE D-Dimer, Quantitative 0.71 H 0.0-0.49 mg/L FEU Test 09/01/24 07:01 09/01/24 00:44 Range/Units Urine Color Yellow Yellow Urine Clarity Clear Clear Urine pH 5.5 5.0-9.0 Urine Specific [place] 1.035 1.001-1.035 Urine Protein 1+ H Negative Urine Ketones 2+ H Negative Urine Blood 1+ H Negative /uL Urine Nitrite Negative Negative Urine Bilirubin Negative Negative Urine Urobilinogen Normal Negative mg/dL Urine Leukocyte Esterase 1+ Negative /uL Urine RBC 12 0 - 3 /hpf Urine Microscopic WBC 10 H 0-3 /HPF Urine Squamous Epithelial Cells None seen <5 /hpf Urine Bacteria None seen None Seen /hpf Urine Mucus Few None Seen Urine Glucose Normal Normal mg/dL Lactic Acid Level 1.7 0.4-2.0 mmol/L Total Bilirubin 0.5 0.2-1.0 mg/dL Aspartate Amino Transferase (AST) 17 13-40 U/L Alanine Aminotransferase (ALT) 18 7-40 U/L Alkaline Phosphatase 76 46-116 U/L Total Protein 7.1 5.7-8.2 g/dL Albumin 3.9 3.2-4.8 g/dL Assessment 1. Possible NSTEMI 2. Cholelithiasis Plan/Recommendation 1. HIDA scan. If it is positive I recommend proceeding with a percutaneous cholecystostomy instead of surgery due to his increased cardiac risk. Plan discussed with: Patient ERIC VILLALBA MD Sep 02, 2024 11:03
[2024-09-02 11:45] LABS: COVID19 ANTIGEN SOFIA FIA NEGATIVE (NEGATIVE)
[2024-09-02] MEDS: ANGIOMAX 250 MG VIAL IV ONE (11:59)
[2024-09-02] MEDS: VERAPAMIL 2.5MG/ML INJ 2ML VIAL IV ONE (11:59)
[2024-09-02] MEDS: fentaNYL CITRATE 100 MCG/2 ML VL ONE (12:00)
[2024-09-02] MEDS: LIDOCAINE 2%HCL (LOCAL ANESTH.) INJ 20ML MDV ONE (12:00)
[2024-09-02] MEDS: MIDAZOLAM HCL 2MG/2ML 2ml VIAL (1mg/ml) ONE (12:00)
[2024-09-02] MEDS: SODIUM CHL 0.9% 0 ML ONE (12:00)
[2024-09-02] MEDS: HEPARIN SODIUM (PORCINE) 5000 UNITS/ML 1ML VIAL ONE (13:01)
--- NOTE | 2024-09-02 13:05 | DVHOP2 ---
Operative Report Operative Report CARDIAC FIELD SUPPORT TECHNICIAN PROCEDURE REPORT [place], [place] Date of Service: 09/02/24 Risk Management Manager: Luis Enrique Chamberlain MD PROCEDURES PERFORMED: Coronary angiogram, left heart catheterization, conscious sedation administration and supervision, less than 15 minutes; fluoroscopy use and interpretation. sedation 15-30 mins, US guided vascular access saved to pacs system PREOPERATIVE DIAGNOSES: NSTEMi POSTOP DIAGNOSIS: severe 3v cad DESCRIPTION OF PROCEDURE: The patient or appropriate family signed informed consent understanding the risks, benefits and alternatives of the procedure, they wished to proceed. The patient was brought to the cardiac wood preserving plant laborer in n.p.o. state. The patient was prepped in a sterile fashion. Sedation was used per cardiac cath protocol. I administered 2 mL of 2% lidocaine to the right wrist the pulse was very weak and non palpable. I used US guidance showing a very calcified ?stenotic but patent R radial artery. With an antegrade front wall puncture. I cannulated the right radial artery and placed a 6-[place] slender. Next, an intra-arterial spasmolytic was administered. Next, a - [place] catheter a were used for coronary angiogram and LVEDP measurement and pressure pullback. At the completion of procedure, all guides and wires were removed, and there were no immediate complications. FINDINGS: RCA: Moderate vessel off the right sinus of Valsalva, there is a mid vessel 80% stenosis and tandem 80 and 90% mid to distal RCA stenosis . 90% distal RCA stenosis prior to PDA takeoff LEFT MAIN: Moderate size left main, it bifurcates into LAD and circumflex. 70% distal LM stenosis CIRCUMFLEX: Moderate caliber vessel coming off the left main with no flow limiting stenosis. 40% otial stenosis. 50% om 1 stenosis LAD: LAD is a moderate caliber vessel coming of the left main. prox LAD has 70% stenosis. mid and distal LAD are patent with good distal flow. LVEDP of 10 mmhg CONCLUSIONS: 1. severe 3v cad PLAN: Aggressive risk factor modification and medical management for the patient. cabg consult LUIS ENRIQUE CHAMBERLAIN MD Sep 02, 2024 13:05
--- NOTE | 2024-09-02 13:07 | DVHPN2 ---
Progress Note Date Seen: Sep 02, 2024 Medical Necessity Reason Pt with a Central, PICC or Fol: No Subjective Other Systems: turned down for lap tiffanie Objective vital signs Vital Sign Date Time Temp Pulse Resp B/P (MAP) Pulse Ox O2 Delivery O2 Flow Rate FiO2 09/02/24 09:00 98.6 63 18 142/71 (94) 99 98.6 09/02/24 08:00 Room Air* 0 21 Total Intake and Output 09/01/24 09/01/24 09/02/24 15:00 23:00 07:00 Intake Total 96 ml 50 ml 0 ml Output Total 400 ml 450 ml Balance 96 ml -350 ml -450 ml medications Current Medications Medications Dose Ordered Sig/Elier Route Start Time Stop Time Status Last Admin Dose Admin Heparin Sodium/ Dextrose 250 ml @ 10 mls/hr Q24H IV 09/01/24 09:30 09/02/24 05:30 10 MLS/HR Ceftriaxone Sodium 50 ml @ 100 mls/hr DAILY@09 IV 09/02/24 09:00 09/02/24 09:29 100 MLS/HR Aspirin 81 mg DAILY PO 09/01/24 10:59 09/02/24 09:29 81 MG Atorvastatin Calcium 40 mg HS PO 09/01/24 22:00 09/01/24 21:30 40 MG Morphine Sulfate 2 mg Q30MP PRN IV 09/01/24 10:45 Acetaminophen 650 mg Q6HP PRN PO 09/01/24 10:45 Nitroglycerin 0.4 mg Q5MINP PRN SL 09/01/24 10:45 Ondansetron HCl 4 mg Q4HP PRN IV 09/01/24 10:45 Pantoprazole Sodium 40 mg DAILY IV 09/01/24 13:00 09/02/24 09:30 40 MG Dextrose/Sodium Chloride 1,000 ml @ 75 mls/hr [id number] IV 09/02/24 12:30 Metronidazole 100 ml @ 100 mls/hr Q8HR IV 09/02/24 14:00 Examination: GENERAL:Abnormal, LUNGS:Abnormal, CVS:Abnormal, ABDOMEN:Abnormal laboratory and microbiology Laboratory Tests 09/02/24 06:25 Test 09/02/24 06:25 Range/Units Serum Glucose 113 H 74-106 mg/dL Problem List/Assessment/Plan Problem List/Assessment/Plan critical 3v cad cad htn HL tiffanie fu surgical recs for ostomy tube with IR needs cabg eval with tyler asa heparin gtt statin Plan discussed with: Patient My Orders My Orders Orders - LUIS ENRIQUE CHAMBERLAIN MD Procedure Category Date Status Time Communication Order ORDERS 09/01/24 Transmitted 15:03 Cl Left Heart Cath CL 09/02/24 Taken 08:47 Communication Order ORDERS 09/02/24 Transmitted 12:56 Post Cath Vital Signs NICK 09/02/24 In Process Q 15min Post Cath Activity NICK 09/02/24 In Process Protocol 12:56 Date of Service: Sep 02, 2024 Billing Provider: LUIS ENRIQUE CHAMBERLAIN MD Common Visit Codes: NOT BILLABLE LUIS ENRIQUE CHAMBERLAIN MD Sep 02, 2024 13:07
--- NOTE | 2024-09-02 15:17 | DVHPNRES ---
Progress Note Date Seen: Sep 02, 2024 Resident Creating Document: ESDRAS WASSERMAN RESIDENT Has the PT tested + for MRSA If YES, has PT been informed?: No Medical Necessity Reason Pt with a Central, PICC or Fol: No Subjective Review of Systems This is a 74-year-old male with past medical history of hypertension, hyperlipidemia, diabetes, and right groin surgery for a past infection, who presents to the ED with epigastric, right upper quadrant abdominal pain radiating to the chest. Patient states that he was transferred from [place] and was experiencing the symptoms. Upon admission patient reported right upper quadrant abd pain and epigastric and radiating to the right thoracic chest and substernal region. The patient described the chest pain as a pressure type of pain rated as 6/10 on the pain scale. Patient reports that he is wheelchair- bound since January of 2024. Initial labs showed normal CBC and BNP with an hemoglobin of 9.9. Troponins came back significantly elevated. Initial EKGs showed sinus bradycardia with first-degree AV block echocardiogram showed LVEF of 60-65%. Patient seen and examined at bedside. Patient still reports right upper quadrant abdominal tenderness radiating to the chest which feels tight and described as pressure type of pain rated as a 6/10 on the pain scale. Cardiology was consulted due to elevated troponin most likely type 1. Patient is currently on blender laborer for coronary angiogram. Previous CT of the abdomen showed prominent gallbladder with sludge cholelithiasis without cholecystitis. Ultrasound of the right upper abdomen showed also the same. Surgery recommended HIDA scan which is still pending. ROS Constitutional: Denies weight loss, fever and chills. HEENT: Denies changes in vision and hearing. Respiratory: Denies shortness of breath and cough Cardiovascular: Reports chest tightness. Palpitations GI: Reports mild right upper quadrant pain. Denies nausea, vomiting and diarrhea. : Denies dysuria and urinary frequency. Musculoskeletal: Denies myalgias and joint pain Skin: Denies rash and pruritus. Neurological: Denies dizziness, headache, vision or hearing problems Objective vital signs Vital Sign Date Time Temp Pulse Resp B/P (MAP) Pulse Ox O2 Delivery O2 Flow Rate FiO2 09/02/24 13:25 56 14 128/68 (88) 96 09/02/24 13:10 98.0 98.0 09/02/24 08:00 Room Air* 0 21 Total Intake and Output 09/01/24 09/01/24 09/02/24 15:00 23:00 07:00 Intake Total 96 ml 50 ml 0 ml Output Total 400 ml 450 ml Balance 96 ml -350 ml -450 ml medications Current Medications Medications Dose Ordered Sig/Elier Route Start Time Stop Time Status Last Admin Dose Admin Heparin Sodium/ Dextrose 250 ml @ 10 mls/hr Q24H IV 09/01/24 09:30 09/02/24 05:30 10 MLS/HR Ceftriaxone Sodium 50 ml @ 100 mls/hr DAILY@09 IV 09/02/24 09:00 09/02/24 09:29 100 MLS/HR Aspirin 81 mg DAILY PO 09/01/24 10:59 09/02/24 09:29 81 MG Atorvastatin Calcium 40 mg HS PO 09/01/24 22:00 09/01/24 21:30 40 MG Morphine Sulfate 2 mg Q30MP PRN IV 09/01/24 10:45 Acetaminophen 650 mg Q6HP PRN PO 09/01/24 10:45 Nitroglycerin 0.4 mg Q5MINP PRN SL 09/01/24 10:45 Ondansetron HCl 4 mg Q4HP PRN IV 09/01/24 10:45 Pantoprazole Sodium 40 mg DAILY IV 09/01/24 13:00 09/02/24 09:30 40 MG Dextrose/Sodium Chloride 1,000 ml @ 75 mls/hr [id number] IV 09/02/24 12:30 Metronidazole 100 ml @ 100 mls/hr Q8HR IV 09/02/24 14:00 Examination Physical Examination General: Patient alert and oriented in person, place and time. Patient following commands. HEENT: Normocephalic, atraumatic, moist mucous membranes Respiratory/pulmonary: Clear lungs bilaterally, no associated crackles or wheezes. Cardiovascular: Normal heart sounds S1 and S2 with no associated murmurs Abdomen: Abdomen nondistended, there is mild tenderness to palpation in the right upper quadrant with positive Youngblood's sign. No masses palpated at this time. Extremities: There is no peripheral edema present at the lower extremities. Skin: No rashes or pruritus, there is no sacral edema present at this time. Neurological: Intact cranial nerves with no focal neurologic deficits laboratory and microbiology Laboratory Tests 09/02/24 06:25 Test 09/02/24 06:25 Range/Units Serum Glucose 113 H 74-106 mg/dL Problem List/Assessment/Plan Problem List/Assessment/Plan Assessment/plan Acute chest pain likely due to acute coronary syndrome NSTEMI likely type 1 Sinus bradycardia with first-degree AV block -troponins significantly elevated [id number] -EKG showed sinus Vijay with first-degree AV block but no ST segment elevation or depression. -echocardiogram CV with an LVEF of 60-65% -cardiology recommended left heart catheterization, which is currently at this time. -coronary angiogram revealed three-vessel disease. Cardiology recommended transfer to higher level of care for CABG -continue heparin drip -continue aspirin 81 mg daily Acute abdominal pain likely due to acute cholecystitis Acute cholelithiasis -start ceftriaxone IV and metronidazole -start D5W/0.45% at 75 cc/hour -CT of the abdomen showed prominent gallbladder with sludge or polyp in the gallbladder neck. -right upper quadrant ultrasound showed cholelithiasis without cholecystitis -surgery was consulted and recommended to follow up with a HIDA scan which is still pending. -recommended percutaneous cholecystostomy if indicated Primary hypertension -start lisinopril 10 mg daily -monitor blood pressure closely Dyslipidemia -continue atorvastatin 40 mg daily GERD Pantoprazole 40 mg daily Goals of care discussed with the patient at bedside for more than 35 minutes, full code Plan discussed with Dr. Madsen Plan discussed with: Patient My Orders My Orders Orders - ESDRAS WASSERMAN Procedure Category Date Status Time D5w/Sod Chl 0.45% PHA 09/02/24 In Process (D5w 1/2ns) 12:30 Metronidazole PHA 09/02/24 In Process 500mg/100ml (Flagyl 14:00 Cardiac DIET 09/02/24 Transmitted Diet-2gna,Lofat,Lochol Dinner * Tie Hacker CONS 09/02/24 Transmitted Consult Date of Service: Sep 02, 2024 Billing Provider: HERMELINDA ALVAREZ MD Common Visit Codes: 11857-[id number] INP/OBS CARE(HIGH) ESDRAS WASSERMAN RESIDENT Sep 02, 2024 15:17 HERMELINDA ALVAREZ MD Sep 12, 2024 02:42
[2024-09-02] MEDS: D5W/SOD CHL 0.45% 1,000 ML IV SCH (16:55)
[2024-09-02] MEDS: LISINOPRIL 5 MG TAB PO ONE (16:57)
[2024-09-02] MEDS ORDERED: LEVO175T4 PO (21:43)
[2024-09-03] VITALS (8 sets, daily range): BP systolic 130–148; BP diastolic 65–73; PULSE 58–70; RESP 15–20; TEMP 96.6–98.1; O2SAT 98–100
[2024-09-03 07:40] LABS: Hematocrit 29.3 % (41.0-53.0); Hemoglobin 9.8 g/dL (13.5-17.5); Mean Corpuscular Hemoglobin 31.3 pg (28.0-32.0); Mean Corpuscular Volume 93.7 fL (80.0-100.0); Nucleated Red Blood Cells % 0.0 %
[2024-09-03 07:54] LABS: Alanine Aminotransferase 17 U/L (7-40); Albumin 3.4 g/dL (3.2-4.8); Alkaline Phosphatase 68 U/L (46-116); Anion Gap 10 (5-15); BUN/Creatinine Ratio 20.8 (10.0-20.0); Bilirubin, Total 0.4 mg/dL (0.2-1.0); Blood Urea Nitrogen 10 mg/dL (9-23); Calcium 9.1 mg/dL (8.7-10.4); Carbon Dioxide 23 mmol/L (20-31); Potassium 3.5 mmol/L (3.5-5.1); Sodium 142 mmol/L (136-145); Total Protein 6.0 g/dL (5.7-8.2)
[2024-09-03 07:58] LABS: Chloride 109 mmol/L (98-107); Glucose 129 mg/dL (74-106)
[2024-09-03 08:05] LABS: INR 1.09 (0.9-1.15); Partial Thromboplastin Time 53.0 SEC (24.5-34.5); Prothrombin Time 11.5 sec (9.3-11.8)
--- NOTE | 2024-09-03 08:14 | DVHPN2 ---
Progress Note Date Seen: Sep 03, 2024 Has the PT tested + for MRSA If YES, has PT been informed?: No Medical Necessity Reason Pt with a Central, PICC or Fol: No Subjective Patient reports: Feels better Objective vital signs Vital Sign Date Time Temp Pulse Resp B/P (MAP) Pulse Ox O2 Delivery O2 Flow Rate FiO2 09/03/24 07:55 16 Room Air* 0 21 09/03/24 05:00 98.1 60 140/70 (93) 98 98.1 Total Intake and Output 09/02/24 09/02/24 09/03/24 15:00 23:00 07:00 Intake Total 170 ml 350 ml 1550 ml Output Total 300 ml Balance 170 ml 50 ml 1550 ml medications Current Medications Medications Dose Ordered Sig/Elier Route Start Time Stop Time Status Last Admin Dose Admin Heparin Sodium/ Dextrose 250 ml @ 10 mls/hr Q24H IV 09/01/24 09:30 09/02/24 05:30 10 MLS/HR Ceftriaxone Sodium 50 ml @ 100 mls/hr DAILY@09 IV 09/02/24 09:00 09/02/24 09:29 100 MLS/HR Aspirin 81 mg DAILY PO 09/01/24 10:59 09/02/24 09:29 81 MG Atorvastatin Calcium 40 mg HS PO 09/01/24 22:00 09/02/24 21:39 40 MG Morphine Sulfate 2 mg Q30MP PRN IV 09/01/24 10:45 Acetaminophen 650 mg Q6HP PRN PO 09/01/24 10:45 Nitroglycerin 0.4 mg Q5MINP PRN SL 09/01/24 10:45 Ondansetron HCl 4 mg Q4HP PRN IV 09/01/24 10:45 Pantoprazole Sodium 40 mg DAILY IV 09/01/24 13:00 09/02/24 09:30 40 MG Dextrose/Sodium Chloride 1,000 ml @ 75 mls/hr [id number] IV 09/02/24 12:30 09/03/24 05:30 75 MLS/HR Metronidazole 100 ml @ 100 mls/hr Q8HR IV 09/02/24 14:00 09/03/24 05:30 100 MLS/HR Lisinopril 10 mg DAILY PO 09/03/24 10:00 Examination: GENERAL:Abnormal, HEENT:Abnormal, LUNGS:Abnormal, CVS:Abnormal, ABDOMEN:Abnormal laboratory and microbiology Laboratory Tests 09/03/24 06:47 Test 09/03/24 06:47 Range/Units Serum Glucose 129 H 74-106 mg/dL Problem List/Assessment/Plan Problem List/Assessment/Plan critical 3v cad cad htn HL tiffanie fu surgical recs for ostomy tube with IR needs cabg eval with [facility] asa heparin gtt statin recommend tx to [facility] for continued care given his complexity may be deemed inoperable by surgical team? pt agrees to plan Plan discussed with: Patient My Orders My Orders Orders - LUIS ENRIQUE CHAMBERLAIN MD Procedure Category Date Status Time Cl Left Heart Cath CL 09/02/24 Taken 08:47 Communication Order ORDERS 09/02/24 Transmitted 12:56 Post Cath Vital Signs NICK 09/02/24 In Process Q 15min Post Cath Activity NICK 09/02/24 In Process Protocol 12:56 Dietary Evaluation Review Comments: Advance to [facility]-60 cardiac diet when medically feasible follow up with progress note, lab and care trend. Expected Outcomes/Goals: controlled DM, improved nutrition status, avoid wt loss Date of Service: Sep 03, 2024 Billing Provider: LUIS ENRIQUE CHAMBERLAIN MD Common Visit Codes: NOT BILLABLE LUIS ENRIQUE CHAMBERLAIN MD Sep 03, 2024 08:14
[2024-09-03] MEDS: LISINOPRIL 5 MG TAB PO SCH (09:19)
--- NOTE | 2024-09-03 13:26 | DVHDSRES ---
Discharge Summary Date of Admission Resident Creating Document: ESDRAS WASSERMAN RESIDENT Sep 01, 2024 at 10:34 Date of Discharge: Sep 03, 2024 Admitting Diagnosis Right upper quadrant abdominal and chest pain. Wounds: No wounds present at this time. Labs/Diagnostic Data: Laboratory Results Test 09/03/24 11:35 09/03/24 06:47 09/02/24 10:00 09/02/24 06:25 POC Glucose 208 mg/dl (70-106) White Blood Count 8.7 10^3/uL (4.4-10.8) Red Blood Count 3.12 10^6/uL (4.5-5.90) Hemoglobin 9.8 g/dL (13.5-17.5) Hematocrit 29.3 % (41.0-53.0) Mean Corpuscular Volume 93.7 fL (80.0-100.0) Mean Corpuscular Hemoglobin 31.3 pg (28.0-32.0) Mean Corpuscular Hemoglobin Concent 33.4 g/dL (32.0-36.0) Red Cell Distribution Width 14.4 % (11.8-14.3) Platelet Count 265 10^3/uL (140-450) Mean Platelet Volume 8.9 fL (6.9-10.8) Neutrophils (%) (Auto) 70.9 % (37.0-80.0) Lymphocytes (%) (Auto) 18.2 % (10.0-50.0) Monocytes (%) (Auto) 7.6 % (0.0-12.0) Eosinophils (%) (Auto) 2.7 % (0.0-7.0) Basophils (%) (Auto) 0.6 % (0.0-2.0) Neutrophils # (Auto) 6.2 10 ^3/uL (1.6-8.6) Lymphocytes # (Auto) 1.6 10 ^3/uL (0.4-5.4) Monocytes # (Auto) 0.7 10 ^3/uL (0-1.3) Eosinophils # (Auto) 0.2 10 ^3/uL (0-0.8) Basophils # (Auto) 0.1 10 ^3/uL (0-0.2) Nucleated Red Blood Cells 0.0 % Prothrombin Time 11.5 sec (9.3-11.8) Prothrombin Time INR 1.09 (0.9-1.15) Activated Partial Thromboplast Time 53.0 SEC (24.5-34.5) Sodium Level 142 mmol/L (136-145) Potassium Level 3.5 mmol/L (3.5-5.1) Chloride Level 109 mmol/L (98-107) Carbon Dioxide Level 23 mmol/L (20-31) Anion Gap 10 (5-15) Blood Urea Nitrogen 10 mg/dL (9-23) Creatinine 0.48 mg/dL (0.700-1.30) Glomerular Filtration Rate Calc 108 mL/min (>90) BUN/Creatinine Ratio 20.8 (10.0-20.0) Serum Glucose 129 mg/dL (74-106) Calcium Level 9.1 mg/dL (8.7-10.4) Total Bilirubin 0.4 mg/dL (0.2-1.0) Aspartate Amino Transferase (AST) 16 U/L (13-40) Alanine Aminotransferase (ALT) 17 U/L (7-40) Alkaline Phosphatase 68 U/L (46-116) Total Protein 6.0 g/dL (5.7-8.2) Albumin 3.4 g/dL (3.2-4.8) Influenza Type A Antigen Negative (Negative) Influenza Type B Antigen Negative (Negative) SARS-CoV-2 Antigen (Rapid) Negative (NEGATIVE) Magnesium Level 1.7 mg/dL (1.6-2.6) B-Type Natriuretic Peptide 225.54 pg/mL (0-100) Triglycerides Level 92 mg/dL (< 150) Cholesterol Level 114 mg/dL (< 200) LDL Cholesterol 48 mg/dL (< 100) HDL Cholesterol 47 mg/dL (40-59) Test 09/01/24 10:55 09/01/24 10:34 09/01/24 08:11 09/01/24 07:01 Troponin I High Sensitivity 493 ng/L (</=54) Thyroid Stimulating Hormone (TSH) 1.48 uIU/mL (0.55-4.78) Free Thyroxine (T4) Calculated 1.28 ng/dL (0.89-1.76) Hemoglobin A1c 5.0 % A1C (<5.7) Urine Opiates Screen Neg (NEGATIVE) Urine Fentanyl Screen Neg (NEGATIVE) Urine Barbiturates Screen Neg (NEGATIVE) Urine Phencyclidine Screen Neg (NEGATIVE) Urine Amphetamines Screen Neg (NEGATIVE) Urine Benzodiazepines Screen Neg (NEGATIVE) Urine Cocaine Screen Neg (NEGATIVE) Urine Cannabinoids Screen Neg (NEGATIVE) D-Dimer, Quantitative 0.71 mg/L FEU (0.0-0.49) Urine Color Yellow (Yellow) Urine Clarity Clear (Clear) Urine pH 5.5 (5.0-9.0) Urine Specific Anthony 1.035 (1.001-1.035) Urine Protein 1+ (Negative) Urine Ketones 2+ (Negative) Urine Blood 1+ /uL (Negative) Urine Nitrite Negative (Negative) Urine Bilirubin Negative (Negative) Urine Urobilinogen Normal mg/dL (Negative) Urine Leukocyte Esterase 1+ /uL (Negative) Urine RBC 12 /hpf (0 - 3) Urine Microscopic WBC 10 /HPF (0-3) Urine Squamous Epithelial Cells None seen /hpf (<5) Urine Bacteria None seen /hpf (None Seen) Urine Mucus Few (None Seen) Urine Glucose Normal mg/dL (Normal) Test 09/01/24 00:44 Lactic Acid Level 1.7 mmol/L (0.4-2.0) Other Laboratory Tests 09/03/24 06:47 Brief Hx & Hospital Course: This is a 74-year-old male with past medical history of hypertension, hyperlipidemia, diabetes, and right groin surgery for a past infection, who presents to the ED with epigastric, right upper quadrant abdominal pain radiating to the chest. Patient states that he was transferred from [place] and was experiencing the symptoms. Upon admission patient reported right upper quadrant abd pain and epigastric and radiating to the right thoracic chest and substernal region. The patient described the chest pain as a pressure type of pain rated as 6/10 on the pain scale. Patient reports that he is wheelchair- bound since January of 2024. Initial labs showed normal CBC and BNP with an hemoglobin of 9.9. Troponins came back significantly elevated. Initial EKGs showed sinus bradycardia with first-degree AV block echocardiogram showed LVEF of 60-65%. Cardiology was consulted due to significant elevation of troponins and coronary angiogram was performed which found three-vessel disease right coronary artery had mid vessel 80% stenosis and 90% stenosis at the distal RCA, left main showed a 70% distal stenosis and LAD showed a 70% stenosis proximally. Cardiology recommended transfer to higher level of care for possible CABG and also medical therapy. Surgery was consulted for possible underlying cholecystitis but due to cardiac findings heart issues will be addressed 1st. Patient was seen and examined at bedside today, patient is feeling well overall and has no significant pain at this time. No palpitations, no fever/chills or any other symptoms. Downstream Biomanufacturing Technician was consulted to transfer patient for higher level of care for CABG. Plan was discussed and explained to the patient in detail which agreed and understood. Physical Examination General: Patient alert and oriented in person, place and time. Patient following commands. HEENT: Normocephalic, atraumatic, moist mucous membranes Respiratory/pulmonary: Clear lungs bilaterally, no associated crackles or wheezes. Cardiovascular: Normal heart sounds S1 and S2 with no associated murmurs Abdomen: Abdomen nondistended, there is mild tenderness to palpation in the right upper quadrant with positive Youngblood's sign. No masses palpated at this time. Extremities: There is no peripheral edema present at the lower extremities. Skin: No rashes or pruritus, there is no sacral edema present at this time. Neurological: Intact cranial nerves with no focal neurologic deficits Discharge plan: -transferred to higher level of care for CABG -continue on IV ceftriaxone and metronidazole -continue on lisinopril 10 mg daily, aspirin 81 mg daily, heparin drip, atorvastatin 40 mg daily -continue cardiac diet -strict in's and out -follow-up with PCP upon discharge from acute care facility. Consults/Reason for consult Cardiology for coronary angiogram Operations or Procedures Exam: CT CT AB PEL WO CON-NO ORAL OR IV History: ruq pain Comparison Study: None TECHNIQUE: Multidetector CT of the abdomen and pelvis was performed from lung bases to pubic symphysis. Imaging was performed without IV contrast. Axial, coronal and sagittal multiplanar reformats were obtained from the axial data set by the technologist. Radiation optimization: All CT scans at this facility use at least one of these dose optimization techniques: automated exposure control mA and/or kV adjustment per patient size (includes targeted exams where dose is matched to clinical indication) or iterative reconstruction. Radiation Dose Information: CT Dose: CTDI volume is 9.2 mGy. Dose-length product is 599.3 mGy*cm FINDINGS: Evaluation of solid organs is limited due to lack of intravenous contrast use. Imaged portions of the lung bases appear unremarkable. There are marked coronary artery calcifications. Small hiatal hernia. The liver, spleen, pancreas and adrenal glands appear unremarkable. Retained contrast is noted in the renal collecting system. There is no evidence of hydronephrosis. The gallbladder is mildly distended measuring 3.7 cm in diameter. Possible sludge or polyp at the gallbladder neck. Common bile duct is mildly prominent measuring 0.8 cm. No evidence of bowel obstruction or focal bowel wall thickening. Large amount of intracolonic stool. Fat containing umbilical hernia. Urinary bladder is collapsed and presence of a Gastelum catheter. Severe degenerative changes of the lumbar spine without suspicious osseous lesion. IMPRESSION: 1. Prominent gallbladder with either sludge or polyp in the gallbladder neck. Right upper quadrant ultrasound is recommended to assess for cholecystitis. 2. Large amount of intracolonic stool. 3. Severe coronary artery calcifications. INDICATION: r/o tiffanie TECHNIQUE: Multiple real-time sonographic images of the abdomen were obtained. COMPARISON: None FINDINGS: The liver is homogenous in echogenicity. The liver measures 14cm. No intrahepatic biliary ductal dilatation is noted. The gallbladder wall measures 0.4 cm and is unremarkable. Gallstones are noted .v No pericholecystic fluid is noted. The right kidney measures 12cm. No hydronephrosis. The pancreas is not well visualized due to obscuration from bowel gas. The visualized portions of the IVC and aorta are grossly unremarkable. IMPRESSION: Gallstones. CHEST RADIOGRAPH Indication: procedure Technique: Single frontal view of the chest was obtained COMPARISON: None FINDINGS: Lines and Tubes: None Lungs: Increased interstitial prominence Pleura: No effusion. No pneumothorax. Cardiomediastinal contours: Unremarkable Bones: Unremarkable IMPRESSION: Mild pulmonary vascular congestion or viral pneumonia Condition at Discharge: Stable Final Diagnosis/Problems List Acute chest pain likely due to acute coronary syndrome NSTEMI likely type 1 Sinus bradycardia with first-degree AV block Acute abdominal pain likely due to acute cholecystitis Acute cholelithiasis Primary hypertension Dyslipidemia GERD Discharge Disposition: Acute Care Facility Discharge Instruct/Medications Diet: Cardiac 2g Na,low cholest Activity: No Restrictions, As Tolerated Follow Up/Referral: F/U with his PCP after discharge Medications: cont on paperwork Scheduled Gabapentin (Gabapentin), 1 CAP PO TID, (Reported) Hydrocodone-Acetaminophen (Hydrocodone/Acetaminophen 5-325 mg), 1 TAB PO Q6HPRN, (Reported) Isosorbide Mononitrate (Isosorbide Mononitrate Er), 1 TAB PO DAILY, (Reported) Levothyroxine Sodium (Levothyroxine Sodium), 175 MCG PO QAM, (Reported) Lisinopril (Lisinopril), 1 TAB PO DAILY, (Reported) Simvastatin (Simvastatin), 1 TAB PO QPM, (Reported) Miscellaneous Medications Insulin NPH (Human) (Isophane) (Humulin N), 100 UNIT SC, (Reported) Discharge Statement: "Patient was advised to return to the ER or call 911 if any headaches, dizziness, shortness of breath, chest pain, abdominal pain, bleeding, fevers, or worsening of medical condition. Patient was counseled about treatment plan, medications, possible side effects, patientverbalized understanding. All questions were answered to the best of my ability. This discharge took greater then 30 minutes in planning, reviewing documentation, counseling the patient, and discussing with other team members." ASSESSMENT ASSESSMENT Assessment Acute chest pain likely due to acute coronary syndrome NSTEMI likely type 1 Sinus bradycardia with first-degree AV block Acute abdominal pain likely due to acute cholecystitis Acute cholelithiasis Primary hypertension Dyslipidemia GERD Date of Service: Sep 03, 2024 Billing Provider: HERMELINDA ALVAREZ MD Common Visit Codes: 11230-PET/OBS DISCH DAY >30min ESDRAS WASSERMAN RESIDENT Sep 03, 2024 13:26 HERMELINDA ALVAREZ MD Sep 12, 2024 20:59
[2024-09-03] MEDS: ACETAMINOPHEN 325 MG TAB PO PRN (20:08)
[2024-09-04] VITALS (8 sets, daily range): BP systolic 114–154; BP diastolic 57–75; PULSE 57–71; RESP 16–20; TEMP 97.6–98.1; O2SAT 94–100
[2024-09-04 07:30] LABS: Hematocrit 28.9 % (41.0-53.0); Hemoglobin 9.7 g/dL (13.5-17.5); Mean Corpuscular Hemoglobin 31.4 pg (28.0-32.0); Mean Corpuscular Volume 93.2 fL (80.0-100.0); Nucleated Red Blood Cells % 0.1 %
[2024-09-04 07:32] LABS: Anion Gap 9 (5-15); Carbon Dioxide 24 mmol/L (20-31); Sodium 144 mmol/L (136-145)
[2024-09-04 07:33] LABS: Calcium 8.9 mg/dL (8.7-10.4)
[2024-09-04 07:38] LABS: BUN/Creatinine Ratio 10.4 (10.0-20.0); INR 1.15 (0.9-1.15); Partial Thromboplastin Time 68.1 SEC (24.5-34.5); Prothrombin Time 12.0 sec (9.3-11.8)
[2024-09-04 07:39] LABS: Blood Urea Nitrogen 5 mg/dL (9-23); Chloride 111 mmol/L (98-107); Glucose 125 mg/dL (74-106); Potassium 3.5 mmol/L (3.5-5.1)
--- NOTE | 2024-09-04 09:00 | DVHPN2 ---
Progress Note - Dictate Date Seen: Sep 04, 2024 Has the PT tested + for MRSA If YES, has PT been informed?: No Medical Necessity Reason Pt with a Central, PICC or Fol: No Subjective E: no major events o/n. Cath showed critical 3 vessel occlusion. curr on heparin drip and ASA. denies abd pain. GEN: NAD. alert. ABD: soft. NT/ND. vital signs Vital Sign Date Time Temp Pulse Resp B/P (MAP) Pulse Ox O2 Delivery O2 Flow Rate FiO2 09/04/24 08:47 98.0 71 17 115/57 (76) 94 98.0 09/04/24 08:00 Room Air* 0 21 Total Intake and Output 09/03/24 09/03/24 09/04/24 15:00 23:00 07:00 Intake Total 2230 ml 2100 ml 900 ml Output Total 1650 ml 1700 ml Balance 2230 ml 450 ml -800 ml medications Current Medications Medications Dose Ordered Sig/Elier Route Start Time Stop Time Status Last Admin Dose Admin Heparin Sodium/ Dextrose 250 ml @ 10 mls/hr Q24H IV 09/01/24 09:30 09/03/24 09:18 10 MLS/HR Ceftriaxone Sodium 50 ml @ 100 mls/hr DAILY@09 IV 09/02/24 09:00 09/03/24 09:18 100 MLS/HR Aspirin 81 mg DAILY PO 09/01/24 10:59 09/03/24 09:19 81 MG Atorvastatin Calcium 40 mg HS PO 09/01/24 22:00 09/03/24 21:44 40 MG Morphine Sulfate 2 mg Q30MP PRN IV 09/01/24 10:45 Acetaminophen 650 mg Q6HP PRN PO 09/01/24 10:45 09/03/24 20:08 650 MG Nitroglycerin 0.4 mg Q5MINP PRN SL 09/01/24 10:45 Ondansetron HCl 4 mg Q4HP PRN IV 09/01/24 10:45 Pantoprazole Sodium 40 mg DAILY IV 09/01/24 13:00 09/03/24 09:18 40 MG Dextrose/Sodium Chloride 1,000 ml @ 75 mls/hr [id number] IV 09/02/24 12:30 09/04/24 04:20 75 MLS/HR Metronidazole 100 ml @ 100 mls/hr Q8HR IV 09/02/24 14:00 09/04/24 05:05 100 MLS/HR Lisinopril 10 mg DAILY PO 09/03/24 10:00 09/03/24 09:19 10 MG laboratory and microbiology Laboratory Tests 09/04/24 05:35 Test 09/04/24 05:35 Range/Units Serum Glucose 125 H 74-106 mg/dL Assessment/Plan A: 1. NSTEMI 2. CAD 3. Cholelithiasis poss cholecystitis P: 1. HIDA is still pending. if it shows cystic duct obstruction, recommend perctaneous drainage as patient is a high surgical risk d/t underlying cardiac issues. if HIDA neg, no need for drainage and work on transfer to [place]. Dietary Evaluation Review Comments: [facility] diet when medically feasible follow up with progress note, lab and care trend. Expected Outcomes/Goals: controlled DM, improved nutrition status, avoid wt loss Plan discussed with: Patient ERIC VILLALBA MD Sep 04, 2024 09:00
--- NOTE | 2024-09-04 12:37 | DVHPN2 ---
Progress Note Date Seen: Sep 04, 2024 Has the PT tested + for MRSA If YES, has PT been informed?: No Medical Necessity Reason Pt with a Central, PICC or Fol: No Subjective Patient reports: Feels better Objective vital signs Vital Sign Date Time Temp Pulse Resp B/P (MAP) Pulse Ox O2 Delivery O2 Flow Rate FiO2 09/04/24 08:53 115/57 09/04/24 08:47 98.0 71 17 94 98.0 09/04/24 08:00 Room Air* 0 21 Total Intake and Output 09/03/24 09/03/24 09/04/24 15:00 23:00 07:00 Intake Total 2230 ml 2100 ml 900 ml Output Total 1650 ml 1700 ml Balance 2230 ml 450 ml -800 ml medications Current Medications Medications Dose Ordered Sig/Elier Route Start Time Stop Time Status Last Admin Dose Admin Heparin Sodium/ Dextrose 250 ml @ 10 mls/hr Q24H IV 09/01/24 09:30 09/04/24 08:56 10 MLS/HR Ceftriaxone Sodium 50 ml @ 100 mls/hr DAILY@09 IV 09/02/24 09:00 09/04/24 08:52 100 MLS/HR Aspirin 81 mg DAILY PO 09/01/24 10:59 09/04/24 08:53 81 MG Atorvastatin Calcium 40 mg HS PO 09/01/24 22:00 09/03/24 21:44 40 MG Morphine Sulfate 2 mg Q30MP PRN IV 09/01/24 10:45 Acetaminophen 650 mg Q6HP PRN PO 09/01/24 10:45 09/03/24 20:08 650 MG Nitroglycerin 0.4 mg Q5MINP PRN SL 09/01/24 10:45 Ondansetron HCl 4 mg Q4HP PRN IV 09/01/24 10:45 Pantoprazole Sodium 40 mg DAILY IV 09/01/24 13:00 09/04/24 08:52 40 MG Dextrose/Sodium Chloride 1,000 ml @ 75 mls/hr [id number] IV 09/02/24 12:30 09/04/24 04:20 75 MLS/HR Metronidazole 100 ml @ 100 mls/hr Q8HR IV 09/02/24 14:00 09/04/24 05:05 100 MLS/HR Lisinopril 10 mg DAILY PO 09/03/24 10:00 09/04/24 08:53 10 MG Examination: GENERAL:Abnormal, HEENT:Abnormal, LUNGS:Abnormal, CVS:Abnormal, ABDOMEN:Normal, ABDOMEN:Abnormal laboratory and microbiology Laboratory Tests 09/04/24 05:35 Test 09/04/24 05:35 Range/Units Serum Glucose 125 H 74-106 mg/dL Microbiology Date/Time Source Procedure Growth Status 09/02/24 15:00 Sacrum Gram Stain - Final Resulted 09/02/24 15:00 Wound Culture - Preliminary Pseudomonas aeruginosa Resulted Problem List/Assessment/Plan Problem List/Assessment/Plan critical 3v cad cad htn HL tiffanie fu surgical recs for ostomy tube with IR needs cabg eval with [place] asa heparin gtt statin recommend tx to [place] for continued care given his complexity may be deemed inoperable by surgical team? pt agrees to plan Plan discussed with: Patient Dietary Evaluation Review Comments[facility] when medically feasible follow up with progress note, lab and care trend. Expected Outcomes/Goals: controlled DM, improved nutrition status, avoid wt loss Date of Service: Sep 04, 2024 Billing Provider: LUIS ENRIQUE CHAMBERLAIN MD Common Visit Codes: NOT BILLABLE LUIS ENRIQUE CHAMBERLAIN MD Sep 04, 2024 12:37
[2024-09-04] MEDS ORDERED: INSUINJ2 SC (12:59)
[2024-09-04] MEDS ORDERED: SIMV40TA18 PO (12:59)
[2024-09-04] MEDS ORDERED: GABA-1308 PO (12:59)
[2024-09-04] MEDS ORDERED: LISI40TA16 PO (12:59)
[2024-09-04] MEDS ORDERED: HYDR1TAB97 PO (12:59)
[2024-09-04] MEDS ORDERED: ISOS1TAB28 PO (12:59)
--- NOTE | 2024-09-04 19:10 | DVHPNRES ---
Progress Note Date Seen: Sep 04, 2024 Resident Creating Document: GRIFFIN GONZALEZ RESIDENT Has the PT tested + for MRSA If YES, has PT been informed?: No Medical Necessity Reason Pt with a Central, PICC or Fol: No Subjective Review of Systems Review of Systems This is a 74-year-old male with past medical history of hypertension, hyperlipidemia, diabetes, and right groin surgery for a past infection, who presents to the ED with epigastric, right upper quadrant abdominal pain radiating to the chest. Patient states that he was transferred from [place] and was experiencing the symptoms. Upon admission patient reported right upper quadrant abd pain and epigastric and radiating to the right thoracic chest and substernal region. The patient described the chest pain as a pressure type of pain rated as 6/10 on the pain scale. Patient reports that he is wheelchair- bound since January of 2024. Initial labs showed normal CBC and BNP with an hemoglobin of 9.9. Troponins came back significantly elevated. Initial EKGs showed sinus bradycardia with first-degree AV block echocardiogram showed LVEF of 60-65%. Patient seen and examined at bedside. Patient still reports right upper quadrant abdominal tenderness radiating to the chest which feels tight and described as pressure type of pain rated as a 6/10 on the pain scale. Cardiology was consulted due to elevated troponin most likely type 1. Patient is currently on laborer plumbing for coronary angiogram. Previous CT of the abdomen showed prominent gallbladder with sludge cholelithiasis without cholecystitis. Ultrasound of the right upper abdomen showed also the same. Surgery recommended HIDA scan which is still pending. 09/04/24 The patient is a 74-year-old male with history of hypertension, dyslipidemia, type 2 diabetes mellitus, GERD, and prior right groin surgery for infection, who presents with epigastric and right upper quadrant abdominal pain radiating to the chest and subxiphoid region. Pain was pressure-like, rated 6/10, and has improved. Patient denies fever, chills, palpitations, nausea, or vomiting. He is wheelchair-bound since Jan 2024. Patient was initially planned for transfer to a higher-level facility for CABG due to severe triple-vessel CAD (RCA 90%, LAD 70%, left main 70%), but transfer is currently on hold per insurance requirements. The insurance company is requesting either a HIDA scan or cholecystostomy tube placement before approving transfer. Patient is being worked up for possible acute cholecystitis. Surgery has deferred intervention until cardiac condition is addressed. A different cardiothoracic surgeon is being contacted in hopes of bypassing the insurance barrier. The patient understands the situation and is agreeable to proceed with further workup. All home medications have been reconciled. ROS Constitutional: Denies weight loss, fever and chills. HEENT: Denies changes in vision and hearing. Respiratory: Denies shortness of breath and cough Cardiovascular: Reports chest tightness. Palpitations GI: Reports mild right upper quadrant pain. Denies nausea, vomiting and diarrhea. : Denies dysuria and urinary frequency. Musculoskeletal: Denies myalgias and joint pain Skin: Denies rash and pruritus. Neurological: Denies dizziness, headache, vision or hearing problems Other Systems: Physical Examination General: Patient alert and oriented in person, place and time. Patient following commands. HEENT: Normocephalic, atraumatic, moist mucous membranes Respiratory/pulmonary: Clear lungs bilaterally, no associated crackles or wheezes. Cardiovascular: Normal heart sounds S1 and S2 with no associated murmurs Abdomen: Abdomen nondistended, there is mild tenderness to palpation in the right upper quadrant with positive Youngblood's sign. No masses palpated at this time. Extremities: There is no peripheral edema present at the lower extremities. Skin: No rashes or pruritus, there is no sacral edema present at this time. Neurological: Intact cranial nerves with no focal neurologic deficits Objective vital signs Vital Sign Date Time Temp Pulse Resp B/P (MAP) Pulse Ox O2 Delivery O2 Flow Rate FiO2 09/04/24 16:46 97.9 63 18 148/72 (97) 100 97.9 09/04/24 08:00 Room Air* 0 21 Total Intake and Output 09/03/24 09/03/24 09/04/24 15:00 23:00 07:00 Intake Total 2230 ml 2100 ml 900 ml Output Total 1650 ml 1700 ml Balance 2230 ml 450 ml -800 ml medications Current Medications Medications Dose Ordered Sig/Elier Route Start Time Stop Time Status Last Admin Dose Admin Heparin Sodium/ Dextrose 250 ml @ 10 mls/hr Q24H IV 09/01/24 09:30 09/04/24 08:56 10 MLS/HR Ceftriaxone Sodium 50 ml @ 100 mls/hr DAILY@09 IV 09/02/24 09:00 09/04/24 08:52 100 MLS/HR Aspirin 81 mg DAILY PO 09/01/24 10:59 09/04/24 08:53 81 MG Atorvastatin Calcium 40 mg HS PO 09/01/24 22:00 09/03/24 21:44 40 MG Morphine Sulfate 2 mg Q30MP PRN IV 09/01/24 10:45 Acetaminophen 650 mg Q6HP PRN PO 09/01/24 10:45 09/03/24 20:08 650 MG Nitroglycerin 0.4 mg Q5MINP PRN SL 09/01/24 10:45 Ondansetron HCl 4 mg Q4HP PRN IV 09/01/24 10:45 Pantoprazole Sodium 40 mg DAILY IV 09/01/24 13:00 09/04/24 08:52 40 MG Dextrose/Sodium Chloride 1,000 ml @ 75 mls/hr [id number] IV 09/02/24 12:30 09/04/24 15:02 75 MLS/HR Metronidazole 100 ml @ 100 mls/hr Q8HR IV 09/02/24 14:00 09/04/24 15:02 100 MLS/HR Lisinopril 10 mg DAILY PO 09/03/24 10:00 09/04/24 08:53 10 MG Levothyroxine Sodium 100 mcg QAM PO 09/05/24 07:00 Levothyroxine Sodium 75 mcg QAM PO 09/05/24 07:00 laboratory and microbiology Laboratory Tests 09/04/24 05:35 Test 09/04/24 05:35 Range/Units Serum Glucose 125 H 74-106 mg/dL Microbiology Date/Time Source Procedure Growth Status 09/02/24 15:00 Sacrum Gram Stain - Final Resulted 09/02/24 15:00 Wound Culture - Preliminary Pseudomonas aeruginosa Resulted Problem List/Assessment/Plan Problem List/Assessment/Plan 1. NSTEMI Type I (Acute Coronary Syndrome) * Triple-vessel CAD on angiogram * Elevated troponins; bradycardia with 1 AVB * Plan: Continue ASA, heparin per [facility] protocol, statin, lisinopril. Monitor cardiac rhythm and BP. Await insurance clearance for CABG. 2. Chest pain (resolved) Secondary to ACS * Pressure-like, improved * Plan: Monitor telemetry, nitroglycerin PRN 3. Triple Vessel CAD CABG Indicated * RCA 90%, LAD 70%, LM 70% * Plan: Transfer pending insurance approval; alternative surgeon being contacted 4. Likely Acute Cholecystitis * gallstones on US * Insurance requires HIDA scan or cholecystostomy before approving CABG transfer * Plan: Await HIDA scan results; consider IR consult for tube if patient becomes septic or worsens; continue IV antibiotics 5. Gallstones / Acute cholelithiasis * Found on US * Plan: NPO, IV fluids, ceftriaxone + metronidazole 6. Hypertension * Stable * Plan: Continue lisinopril 10 mg PO daily 7. Hyperlipidemia * Plan: Continue atorvastatin 40 mg PO daily 8. GERD * Plan: Continue pantoprazole 40 mg IV daily 9. Anemia * Likely chronic; trending Hgb down * Plan: Monitor serial CBCs; no transfusion indicated 10. Functional Decline * Wheelchair-bound since 2023 * Plan: PT consult after cardiac stabilization Discharge / Transfer Plan: * Awaiting HIDA scan * Exploring alternate CT surgery options * Transfer pending insurance and clinical clearance * Continue: * Ceftriaxone 1 g IV daily * Metronidazole 500 mg IV q8h * Lisinopril 10 mg PO daily * Atorvastatin 40 mg PO daily * Aspirin 81 mg PO daily * Pantoprazole 40 mg IV daily * Cardiac diet * Strict I/Os * Continue telemetry * Follow-up with PCP and cardiology post-discharge Consults: * Cardiology: Completed for angiogram and NSTEMI * Surgery: Deferred pending cardiac clearance * IR: Consider for cholecystostomy if worsening * Social Work: Assisting with transfer coordination * Insurance Liaison: Working on clearance for HIDA/cholecystostomy Plan discussed with: Patient My Orders My Orders Orders - GRIFFIN GONZALEZ RESIDENT Procedure Category Date Status Time Comprehensive LAB 09/05/24 Verified Metabolic Panel 04:00 Levothyroxine Tablet PHA 09/05/24 In Process (Synthroid Tablet) 07:00 Levothyroxine Tablet PHA 09/05/24 In Process (Synthroid Tablet) 07:00 Dietary Evaluation Review Comments: [facility] when medically feasible follow up with progress note, lab and care trend. Expected Outcomes/Goals: controlled DM, improved nutrition status, avoid wt loss Date of Service: Sep 04, 2024 Billing Provider: HERMELINDA ALVAREZ MD Common Visit Codes: [id number] INP/OBS CARE(HIGH) GRIFFIN GONZALEZ RESIDENT Sep 04, 2024 19:10 HERMELINDA ALVAREZ MD Sep 12, 2024 02:12
[2024-09-05] VITALS (8 sets, daily range): BP systolic 128–150; BP diastolic 53–78; PULSE 53–68; RESP 17–20; TEMP 97.4–98.1; O2SAT 98–100
[2024-09-05] MEDS: LEVOTHYROXINE SODIUM 100 MCG TAB PO SCH (06:23)
[2024-09-05] MEDS: LEVOTHYROXINE SODIUM 50 MCG TAB PO SCH (06:24)
[2024-09-05 09:29] LABS: Hematocrit 30.8 % (41.0-53.0); Hemoglobin 10.3 g/dL (13.5-17.5); Mean Corpuscular Hemoglobin 31.4 pg (28.0-32.0); Mean Corpuscular Volume 93.5 fL (80.0-100.0); Nucleated Red Blood Cells % 0.1 %
[2024-09-05 09:48] LABS: Alanine Aminotransferase 16 U/L (7-40); Albumin 3.2 g/dL (3.2-4.8); Alkaline Phosphatase 65 U/L (46-116); Anion Gap 10 (5-15); BUN/Creatinine Ratio 10.2 (10.0-20.0); Bilirubin, Total 0.3 mg/dL (0.2-1.0); Blood Urea Nitrogen < 5 mg/dL (9-23); Calcium 9.1 mg/dL (8.7-10.4); Carbon Dioxide 23 mmol/L (20-31); Chloride 110 mmol/L (98-107); Glucose 138 mg/dL (74-106); Potassium 3.5 mmol/L (3.5-5.1); Sodium 143 mmol/L (136-145); Total Protein 5.8 g/dL (5.7-8.2)
[2024-09-05 09:57] LABS: INR 1.19 (0.9-1.15); Prothrombin Time 12.4 sec (9.3-11.8)
[2024-09-05 09:58] LABS: Partial Thromboplastin Time 72.9 SEC (24.5-34.5)
[2024-09-05] MEDS ORDERED: CEFEPIME 2GM/50ML NS 50 ML IV SCH ×2 (12:52→14:00)
[2024-09-05] MEDS ORDERED: CEFEPIME 1GM/ 50ML 50 ML IV SCH (14:00)
[2024-09-05] MEDS ORDERED: MORPHINE SULFATE INJ 2 MG/ml SYRG IV PRN (15:00)
--- NOTE | 2024-09-05 17:32 | DVH ---
Procedure: NM NM HIDA SCAN Exam Date: 09/05/2024 01:52 PM Clinical History: Acute Cholecystitis Comparison Study: 09/01/2024 Nuclear Medicine Hepatobiliary Scan. Technique: Following the intravenous administration of 6.2 mCi of technetium 99m labeled Choletec multiple plana r abdominal planar images were obtained in anterior projection in 1 minute intervals for 60 minutes . Right lateral images were obtained at 60 minutes after injection. 2 mg of morphine was administered. Anterior and lateral images were obtained at 90 minutes. Findings: Prompt uptake and excretion from the liver. Gallbladder nonvisualized at 60 minutes. 2 mg of morphin e was administered. Thereafter, the gallbladder is visualized. Impression: Delayed visualization of the gallbladder seen after the administration of 2 mg of morphine. This can be seen with entities such as chronic cholecystitis.
--- NOTE | 2024-09-05 17:43 | DVHPNRES ---
Progress Note Date Seen: Sep 05, 2024 Resident Creating Document: JOSE SORENSEN RESIDENT Has the PT tested + for MRSA If YES, has PT been informed?: No Medical Necessity Reason Pt with a Central, PICC or Fol: No Subjective Review of Systems This is a 74-year-old male with past medical history of hypertension, hyperlipidemia, diabetes, and right groin surgery for a past infection, who presents to the ED with epigastric, right upper quadrant abdominal pain radiating to the chest. Patient states that he was transferred from [place] and was experiencing the symptoms. Upon admission patient reported right upper quadrant abd pain and epigastric and radiating to the right thoracic chest and substernal region. The patient described the chest pain as a pressure type of pain rated as 6/10 on the pain scale. Patient reports that he is wheelchair- bound since January of 2024. Initial labs showed normal CBC and BNP with an hemoglobin of 9.9. Troponins came back significantly elevated. Initial EKGs showed sinus bradycardia with first-degree AV block echocardiogram showed LVEF of 60-65%. 09/03/24 Patient seen and examined at bedside. Patient still reports right upper quadrant abdominal tenderness radiating to the chest which feels tight and described as pressure type of pain rated as a 6/10 on the pain scale. Cardiology was consulted due to elevated troponin most likely type 1. 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 Previous CT of the abdomen showed prominent gallbladder with sludge cholelithiasis without cholecystitis. Ultrasound of the right upper abdomen showed also the same. Surgery recommended HIDA scan which is still pending. 09/04/24 The patient is a 74-year-old male with history of hypertension, dyslipidemia, type 2 diabetes mellitus, GERD, and prior right groin surgery for infection, who presents with epigastric and right upper quadrant abdominal pain radiating to the chest and subxiphoid region. Pain was pressure-like, rated 6/10, and has improved. Patient denies fever, chills, palpitations, nausea, or vomiting. He is wheelchair-bound since Jan 2024. Patient was initially planned for transfer to a higher-level facility for CABG due to severe triple-vessel CAD (RCA 90%, LAD 70%, left main 70%), but transfer is currently on hold per insurance requirements. The insurance company is requesting either a HIDA scan or cholecystostomy tube placement before approving transfer.Patient is being worked up for possible acute cholecystitis. Surgery has deferred intervention until cardiac condition is addressed. A different cardiothoracic surgeon is being contacted in hopes of bypassing the insurance barrier. The patient understands the situation and is agreeable to proceed with further workup.All home medications have been reconciled. 09/05/24: Patient was examined at bed side, Today he reports mild upper quadrant pain. Patient will have HIDA scan today, we will follow up the result before transfer this patient to a higher care level facility for CABG due to severe triple-vessel CAD (RCA 90%, LAD 70%, left main 70%), We will follow up this patient closely. ROS Constitutional: Denies weight loss, fever and chills. HEENT: Denies changes in vision and hearing. Respiratory: Denies shortness of breath and cough Cardiovascular: Reports chest tightness. Palpitations GI: Reports mild right upper quadrant pain. Denies nausea, vomiting and diarrhea. : Denies dysuria and urinary frequency. Musculoskeletal: Denies myalgias and joint pain Skin: Denies rash and pruritus. Neurological: Denies dizziness, headache, vision or hearing problems Physical Examination General: Patient alert and oriented in person, place and time. Patient following commands. HEENT: Normocephalic, atraumatic, moist mucous membranes Respiratory/pulmonary: Clear lungs bilaterally, no associated crackles or wheezes. Cardiovascular: Normal heart sounds S1 and S2 with no associated murmurs Abdomen: Abdomen nondistended, there is mild tenderness to palpation in the right upper quadrant with positive Youngblood's sign. No masses palpated at this time. Extremities: There is no peripheral edema present at the lower extremities. Skin: No rashes or pruritus, there is no sacral edema present at this time. Neurological: Intact cranial nerves with no focal neurologic deficits Objective vital signs Vital Sign Date Time Temp Pulse Resp B/P (MAP) Pulse Ox O2 Delivery O2 Flow Rate FiO2 09/05/24 13:00 98.1 60 18 150/70 (96) 100 98.1 09/05/24 08:00 Room Air* 0 21 Total Intake and Output 09/04/24 09/04/24 09/05/24 15:00 23:00 07:00 Intake Total 1300 ml 980 ml 400 ml Output Total 1701 ml 1401 ml Balance 1300 ml -721 ml -1001 ml medications Current Medications Medications Dose Ordered Sig/Elier Route Start Time Stop Time Status Last Admin Dose Admin Heparin Sodium/ Dextrose 250 ml @ 10 mls/hr Q24H IV 09/01/24 09:30 09/05/24 09:30 10 MLS/HR Aspirin 81 mg DAILY PO 09/01/24 10:59 09/05/24 09:25 81 MG Atorvastatin Calcium 40 mg HS PO 09/01/24 22:00 09/04/24 21:21 40 MG Morphine Sulfate 2 mg Q30MP PRN IV 09/01/24 10:45 Acetaminophen 650 mg Q6HP PRN PO 09/01/24 10:45 09/03/24 20:08 650 MG Nitroglycerin 0.4 mg Q5MINP PRN SL 09/01/24 10:45 Ondansetron HCl 4 mg Q4HP PRN IV 09/01/24 10:45 Pantoprazole Sodium 40 mg DAILY IV 09/01/24 13:00 09/05/24 09:24 40 MG Dextrose/Sodium Chloride 1,000 ml @ 75 mls/hr [id number] IV 09/02/24 12:30 09/04/24 15:02 75 MLS/HR Metronidazole 100 ml @ 100 mls/hr Q8HR IV 09/02/24 14:00 09/05/24 06:23 100 MLS/HR Lisinopril 10 mg DAILY PO 09/03/24 10:00 09/05/24 09:25 10 MG Levothyroxine Sodium 100 mcg QAM PO 09/05/24 07:00 09/05/24 06:23 100 MCG Levothyroxine Sodium 75 mcg QAM PO 09/05/24 07:00 09/05/24 06:24 75 MCG Cefepime HCl 50 ml @ 12.5 mls/hr Q8HR IV 09/05/24 14:00 UNV Cefepime HCl 50 ml @ 12.5 mls/hr Q12HR IV 09/05/24 22:00 Morphine Sulfate 2 mg ONCE PRN IV 09/05/24 15:00 laboratory and microbiology Laboratory Tests 09/05/24 08:47 Test 09/05/24 08:47 Range/Units Serum Glucose 138 H 74-106 mg/dL Microbiology Date/Time Source Procedure Growth Status 09/02/24 15:00 Sacrum Gram Stain - Final Complete 09/02/24 15:00 Wound Culture - Final Pseudomonas aeruginosa Enterococcus faecalis Complete Problem List/Assessment/Plan Problem List/Assessment/Plan Problem List/Assessment/Plan NSTEMI Type I (Acute Coronary Syndrome) * Triple-vessel CAD on angiogram * Elevated troponins; bradycardia with 1 AVB * Plan: Continue ASA, heparin per [facility] protocol, statin, lisinopril. Monitor cardiac rhythm and BP. Await insurance clearance for CABG. Chest pain (resolved) Secondary to ACS * Pressure-like, improved * Plan: Monitor telemetry, nitroglycerin PRN Triple Vessel CAD CABG Indicated * RCA 90%, LAD 70%, LM 70% * Plan: Transfer pending insurance approval; alternative surgeon being contacted Likely Acute Cholecystitis * gallstones on US * HIDA scan or cholecystostomy before approving CABG transfer Gallstones / Acute cholelithiasis * Found on US * Plan: NPO, IV fluids, ceftriaxone + metronidazole Hypertension * Stable * Plan: Continue lisinopril 10 mg PO daily Hyperlipidemia * Plan: Continue atorvastatin 40 mg PO daily GERD * Plan: Continue pantoprazole 40 mg IV daily Anemia * Likely chronic; trending Hgb down * Plan: Monitor serial CBCs; no transfusion indicated Functional Decline * Wheelchair-bound since 2023 * Plan: PT consult after cardiac stabilization Plan discussed with: Goals of care discussed with the patient and Attending Dr. Madsen, for > 35 min. The patient agrees with the plan. Code status: Full code. Plan discussed with: Patient My Orders My Orders Orders - JOSE SORENSEN Procedure Category Date Status Time Nm Hida Scan NM 09/05/24 Taken 12:42 Pharmacy [facility] 09/05/24 In Process Clarification: 12:50 Cefepime 1gm/ 50ml PHA 09/05/24 In Process (Maxipime 1gm/50ml) 22:00 Morphine Sulfate PHA 09/05/24 In Process Injection 15:00 Dietary Evaluation Review Comments[facility] when medically feasible follow up with progress note, lab and care trend. Expected Outcomes/Goals: controlled DM, improved nutrition status, avoid wt loss Date of Service: Sep 05, 2024 Billing Provider: HERMELINDA ALVAREZ MD Common Visit Codes: [id number] INP/OBS CARE(HIGH) JOSE SORENSEN RESIDENT Sep 05, 2024 17:43 HERMELINDA ALVAREZ MD Sep 12, 2024 02:22
[2024-09-05] MEDS: CEFEPIME 1GM/ 50ML 50 ML IV SCH (22:48)
[2024-09-06] VITALS (9 sets, daily range): BP systolic 135–153; BP diastolic 53–72; PULSE 58–106; RESP 17–20; TEMP 97.7–99.1; O2SAT 96–100
[2024-09-06 07:09] LABS: Hematocrit 32.7 % (41.0-53.0); Hemoglobin 10.8 g/dL (13.5-17.5); Mean Corpuscular Hemoglobin 31.2 pg (28.0-32.0); Mean Corpuscular Volume 94.6 fL (80.0-100.0); Nucleated Red Blood Cells % 0.1 %
[2024-09-06 07:18] LABS: INR 1.17 (0.9-1.15); Partial Thromboplastin Time 53.2 SEC (24.5-34.5); Prothrombin Time 12.2 sec (9.3-11.8)
[2024-09-06 07:28] LABS: Alanine Aminotransferase 17 U/L (7-40); Albumin 3.2 g/dL (3.2-4.8); Alkaline Phosphatase 67 U/L (46-116); Anion Gap 10 (5-15); Calcium 8.9 mg/dL (8.7-10.4); Carbon Dioxide 23 mmol/L (20-31); Potassium 3.6 mmol/L (3.5-5.1); Sodium 143 mmol/L (136-145); Total Protein 5.8 g/dL (5.7-8.2)
[2024-09-06 07:29] LABS: BUN/Creatinine Ratio 9.6 (10.0-20.0); Bilirubin, Total 0.3 mg/dL (0.2-1.0); Blood Urea Nitrogen < 5 mg/dL (9-23); Chloride 110 mmol/L (98-107); Glucose 127 mg/dL (74-106)
[2024-09-06] MEDS ORDERED: AMPICILLIN & SULBACTAM SODIUM 3 GM in SODIUM CHL 0.9% 100 ML IV SCH (13:30)
--- NOTE | 2024-09-06 14:36 | DVHDSRES ---
Discharge Summary Date of Admission Resident Creating Document: JOSE SORENSEN RESIDENT Sep 01, 2024 at 10:34 Date of Discharge: Sep 06, 2024 Admitting Diagnosis -Chest pain, like due to ACS Wounds: Sacral decubitus pressure ulcer grade I Labs/Diagnostic Data: Laboratory Results Test 09/06/24 05:59 09/03/24 11:35 09/02/24 10:00 09/02/24 06:25 White Blood Count 7.0 10^3/uL (4.4-10.8) Red Blood Count 3.46 10^6/uL (4.5-5.90) Hemoglobin 10.8 g/dL (13.5-17.5) Hematocrit 32.7 % (41.0-53.0) Mean Corpuscular Volume 94.6 fL (80.0-100.0) Mean Corpuscular Hemoglobin 31.2 pg (28.0-32.0) Mean Corpuscular Hemoglobin Concent 33.0 g/dL (32.0-36.0) Red Cell Distribution Width 14.8 % (11.8-14.3) Platelet Count 260 10^3/uL (140-450) Mean Platelet Volume 9.1 fL (6.9-10.8) Neutrophils (%) (Auto) 58.6 % (37.0-80.0) Lymphocytes (%) (Auto) 25.1 % (10.0-50.0) Monocytes (%) (Auto) 10.9 % (0.0-12.0) Eosinophils (%) (Auto) 4.8 % (0.0-7.0) Basophils (%) (Auto) 0.6 % (0.0-2.0) Neutrophils # (Auto) 4.1 10 ^3/uL (1.6-8.6) Lymphocytes # (Auto) 1.8 10 ^3/uL (0.4-5.4) Monocytes # (Auto) 0.8 10 ^3/uL (0-1.3) Eosinophils # (Auto) 0.3 10 ^3/uL (0-0.8) Basophils # (Auto) 0 10 ^3/uL (0-0.2) Nucleated Red Blood Cells 0.1 % Prothrombin Time 12.2 sec (9.3-11.8) Prothrombin Time INR 1.17 (0.9-1.15) Activated Partial Thromboplast Time 53.2 SEC (24.5-34.5) Sodium Level 143 mmol/L (136-145) Potassium Level 3.6 mmol/L (3.5-5.1) Chloride Level 110 mmol/L (98-107) Carbon Dioxide Level 23 mmol/L (20-31) Anion Gap 10 (5-15) Blood Urea Nitrogen < 5 mg/dL (9-23) Creatinine 0.52 mg/dL (0.700-1.30) Glomerular Filtration Rate Calc 106 mL/min (>90) BUN/Creatinine Ratio 9.6 (10.0-20.0) Serum Glucose 127 mg/dL (74-106) Calcium Level 8.9 mg/dL (8.7-10.4) Total Bilirubin 0.3 mg/dL (0.2-1.0) Aspartate Amino Transferase (AST) 21 U/L (13-40) Alanine Aminotransferase (ALT) 17 U/L (7-40) Alkaline Phosphatase 67 U/L (46-116) Total Protein 5.8 g/dL (5.7-8.2) Albumin 3.2 g/dL (3.2-4.8) POC Glucose 208 mg/dl (70-106) Influenza Type A Antigen Negative (Negative) Influenza Type B Antigen Negative (Negative) SARS-CoV-2 Antigen (Rapid) Negative (NEGATIVE) Magnesium Level 1.7 mg/dL (1.6-2.6) B-Type Natriuretic Peptide 225.54 pg/mL (0-100) Triglycerides Level 92 mg/dL (< 150) Cholesterol Level 114 mg/dL (< 200) LDL Cholesterol 48 mg/dL (< 100) HDL Cholesterol 47 mg/dL (40-59) Test 09/01/24 10:55 09/01/24 10:34 09/01/24 08:11 09/01/24 07:01 Troponin I High Sensitivity 493 ng/L (</=54) Thyroid Stimulating Hormone (TSH) 1.48 uIU/mL (0.55-4.78) Free Thyroxine (T4) Calculated 1.28 ng/dL (0.89-1.76) Hemoglobin A1c 5.0 % A1C (<5.7) Urine Opiates Screen Neg (NEGATIVE) Urine Fentanyl Screen Neg (NEGATIVE) Urine Barbiturates Screen Neg (NEGATIVE) Urine Phencyclidine Screen Neg (NEGATIVE) Urine Amphetamines Screen Neg (NEGATIVE) Urine Benzodiazepines Screen Neg (NEGATIVE) Urine Cocaine Screen Neg (NEGATIVE) Urine Cannabinoids Screen Neg (NEGATIVE) D-Dimer, Quantitative 0.71 mg/L FEU (0.0-0.49) Urine Color Yellow (Yellow) Urine Clarity Clear (Clear) Urine pH 5.5 (5.0-9.0) Urine Specific [place] 1.035 (1.001-1.035) Urine Protein 1+ (Negative) Urine Ketones 2+ (Negative) Urine Blood 1+ /uL (Negative) Urine Nitrite Negative (Negative) Urine Bilirubin Negative (Negative) Urine Urobilinogen Normal mg/dL (Negative) Urine Leukocyte Esterase 1+ /uL (Negative) Urine RBC 12 /hpf (0 - 3) Urine Microscopic WBC 10 /HPF (0-3) Urine Squamous Epithelial Cells None seen /hpf (<5) Urine Bacteria None seen /hpf (None Seen) Urine Mucus Few (None Seen) Urine Glucose Normal mg/dL (Normal) Test 09/01/24 00:44 Lactic Acid Level 1.7 mmol/L (0.4-2.0) Other Laboratory Tests 09/06/24 05:59 Brief Hx & Hospital Course: This is a 74-year-old male with past medical history of hypertension, hyperlipidemia, diabetes, and right groin surgery for a past infection. He is wheelchair-bound since Jan 2024. The patient presents to the ED with epigastric, right upper quadrant abdominal pain radiating to the chest. Patient states that he was transferred from [place] and was experiencing the symptoms. Upon admission patient reported right upper quadrant abd pain and epigastric and radiating to the right thoracic chest and substernal region. The patient described the chest pain as a pressure type of pain rated as 6/10 on the pain scale. Patient reports that he is wheelchair-bound since January of 2024. Initial labs showed normal CBC and BNP with an hemoglobin of 9.9. Troponins came back significantly elevated. Initial EKGs showed sinus bradycardia with first-degree AV block echocardiogram showed LVEF of 60-65%. The following events occurred during the patient admission: On 09/03/24 Patient was seen and examined at bedside. Patient reported right upper quadrant abdominal tenderness radiating to the chest which feels tight and described as pressure type of pain rated as a 6/10 on the pain scale. Cardiology was consulted due to elevated troponin most likely type 1. The patient was scheduled for coronary angiogram. Previous CT of the abdomen showed prominent gallbladder with sludge cholelithiasis without cholecystitis. Ultrasound of the right upper abdomen showed also the same. Surgery recommended HIDA scan which is still pending. On 09/04/24: The patient is a 74-year-old male with history of hypertension, dyslipidemia, type 2 diabetes mellitus, GERD, and prior right groin surgery for infection, who presents with epigastric and right upper quadrant abdominal pain radiating to the chest and subxiphoid region. Pain was pressure-like, rated 6/10, and has improved. Patient denies fever, chills, palpitations, nausea, or vomiting. He is wheelchair-bound since Jan 2024. Patient was initially planned for transfer to a higher-level facility for CABG due to severe triple-vessel CAD (RCA 90%, LAD 70%, left main 70%), but transfer is currently on hold per insurance requirements. The insurance company is requesting either a HIDA scan or cholecystostomy tube placement before approving transfer.Patient is being worked up for possible acute cholecystitis. Surgery has deferred intervention until cardiac condition is addressed. A different cardiothoracic surgeon is being contacted in hopes of bypassing the insurance barrier. The patient understands the situation and is agreeable to proceed with further workup.All home medications have been reconciled. On 09/05/24: Patient was examined at bed side, the patient reported mild upper quadrant pain. Patient will have HIDA scan today, we will follow up the result before transfer this patient to a higher care level facility for CABG due to severe triple-vessel CAD (RCA 90%, LAD 70%, left main 70%), We will follow up this patient closely. 09/06/24: Today, the patient was evaluated and examined at the bedside. Patient reports feeling better, the upper quadrant pain has improved, vital sign were reviewed. The HIDA scan reported Chronic Cholecystitis. Patient will continue: Cefepime 1g and Unasyn (ampicillin/sulbactam). Metronidazol has been discontinuated today. Patient will be transferred to a higher level of care for CABG due to severe triple-vessel CAD (RCA 90%, LAD 70%, left main 70%). ROS Constitutional: Denies weight loss, fever and chills. HEENT: Denies changes in vision and hearing. Respiratory: Denies shortness of breath and cough Cardiovascular: Reports chest tightness. Palpitations GI: Reports mild right upper quadrant pain. Denies nausea, vomiting and diarrhea. : Denies dysuria and urinary frequency. Musculoskeletal: Denies myalgias and joint pain Skin: Denies rash and pruritus. Neurological: Denies dizziness, headache, vision or hearing problems Physical Examination General: Patient alert and oriented in person, place and time. Patient following commands. HEENT: Normocephalic, atraumatic, moist mucous membranes Respiratory/pulmonary: Clear lungs bilaterally, no associated crackles or wheezes. Cardiovascular: Normal heart sounds S1 and S2 with no associated murmurs Abdomen: Abdomen nondistended, there is mild tenderness to palpation in the right upper quadrant with positive Youngblood's sign. No masses palpated at this time. Extremities: There is no peripheral edema present at the lower extremities. Skin: sacral decubitus pressure ulcer grade I (present prior to hospital admission, patient is wheelchair bound since Jan 2024) No rashes or pruritus, there is no sacral edema present at this time. Neurological: Intact cranial nerves with no focal neurologic deficits Assessments: NSTEMI Type I (Acute Coronary Syndrome) * Triple-vessel CAD on angiogram * Elevated troponins; bradycardia with 1 AVB * Plan: Continue ASA, heparin per [facility] protocol, statin, lisinopril. Monitor cardiac rhythm and BP. * Transfer to high level of care for CABG Chest pain (resolved) Secondary to ACS * Pressure-like, improved * Plan: Monitor telemetry, nitroglycerin PRN Triple Vessel CAD CABG Indicated * RCA 90%, LAD 70%, LM 70% * Plan: Transfer pending insurance approval; alternative surgeon being contacted Chronic Cholecystitis * HIDA scan: Chronic cholecystitis Gallstones / Acute cholelithiasis * Found on US * Plan: NPO, IV fluids, cefepime 1 gr IV, Unysim 3 gr, Hypertension * Stable * Plan: Continue lisinopril 10 mg PO daily Hyperlipidemia * Plan: Continue atorvastatin 40 mg PO daily GERD * Plan: Continue pantoprazole 40 mg IV daily Anemia * Likely chronic; trending Hgb down * Plan: Monitor serial CBCs; no transfusion indicated Sacral decubitus pressure ulcer, Grade I *Wound care. Functional Decline * Wheelchair-bound since 2023 * Plan: PT consult after cardiac stabilization Plan discussed with: Goals of care discussed with the patient and Attending Dr. Madsen, for > 35 min. The patient agrees with the plan. Code status: Full code. Plan discussed with: Patient Operations or Procedures Tests: Exam: CT CT AB PEL WO CON-NO ORAL OR IV History: ruq pain Comparison Study: None TECHNIQUE: Multidetector CT of the abdomen and pelvis was performed from lung bases to pubic symphysis. Imaging was performed without IV contrast. Axial, coronal and sagittal multiplanar reformats were obtained from the axial data set by the technologist. Radiation optimization: All CT scans at this facility use at least one of these dose optimization techniques: automated exposure control mA and/or kV adjustment per patient size (includes targeted exams where dose is matched to clinical indication) or iterative reconstruction. Radiation Dose Information: CT Dose: CTDI volume is 9.2 mGy. Dose-length product is 599.3 mGy*cm FINDINGS: Evaluation of solid organs is limited due to lack of intravenous contrast use. Imaged portions of the lung bases appear unremarkable. There are marked coronary artery calcifications. Small hiatal hernia. The liver, spleen, pancreas and adrenal glands appear unremarkable. Retained contrast is noted in the renal collecting system. There is no evidence of hydronephrosis. The gallbladder is mildly distended measuring 3.7 cm in diameter. Possible sludge or polyp at the gallbladder neck. Common bile duct is mildly prominent measuring 0.8 cm. No evidence of bowel obstruction or focal bowel wall thickening. Large amount of intracolonic stool. Fat containing umbilical hernia. Urinary bladder is collapsed and presence of a Gastelum catheter. Severe degenerative changes of the lumbar spine without suspicious osseous lesion. IMPRESSION: 1. Prominent gallbladder with either sludge or polyp in the gallbladder neck. Right upper quadrant ultrasound is recommended to assess for cholecystitis. 2. Large amount of intracolonic stool. 3. Severe coronary artery calcifications. Exam: Abdominal US ORDERING PHYSICIAN: CHITO WALSH PROCEDURE(s): ABDL - ABDOMEN LIMITED REASON: r/o tiffanie ORDER NUMBER(s): [id number], ACCESSION NUMBER(s): [id number] INDICATION: r/o tiffanie TECHNIQUE: Multiple real-time sonographic images of the abdomen were obtained. COMPARISON: None FINDINGS: The liver is homogenous in echogenicity. The liver measures 14cm. No intrahepatic biliary ductal dilatation is noted. The gallbladder wall measures 0.4 cm and is unremarkable. Gallstones are noted .v No pericholecystic fluid is noted. The right kidney measures 12cm. No hydronephrosis. The pancreas is not well visualized due to obscuration from bowel gas. The visualized portions of the IVC and aorta are grossly unremarkable. IMPRESSION: Gallstones. Exam: Chest Xray ORDERING PHYSICIAN: DANIS QIU PROCEDURE(s): CXR1 - CHEST XRAY 1 VIEW REASON: procedure ORDER NUMBER(s): [id number], ACCESSION NUMBER(s): [id number] CHEST RADIOGRAPH Indication: procedure Technique: Single frontal view of the chest was obtained COMPARISON: None FINDINGS: Lines and Tubes: None Lungs: Increased interstitial prominence Pleura: No effusion. No pneumothorax. Cardiomediastinal contours: Unremarkable Bones: Unremarkable IMPRESSION: Mild pulmonary vascular congestion or viral pneumonia Exam: HIDA Scan Procedure: NM NM HIDA SCAN Exam Date: 09/05/2024 01:52 PM Clinical History: Acute Cholecystitis Comparison Study: 09/01/2024 Nuclear Medicine Hepatobiliary Scan. Technique: Following the intravenous administration of 6.2 mCi of technetium 99m labeled Choletec multiple planar abdominal planar images were obtained in anterior projection in 1 minute intervals for 60 minutes . Right lateral images were obtained at 60 minutes after injection. 2 mg of morphine was administered. Anterior and lateral images were obtained at 90 minutes. Findings: Prompt uptake and excretion from the liver. Gallbladder nonvisualized at 60 minutes. 2 mg of morphine was administered. Thereafter, the gallbladder is visualized. Impression: Delayed visualization of the gallbladder seen after the administration of 2 mg of morphine. This can be seen with entities such as chronic cholecystitis. Condition at Discharge: Stable Final Diagnosis/Problems List Acute chest pain likely due to acute coronary syndrome NSTEMI likely type 1 Acute abdominal pain likely due to acute cholecystitis Chronic Cholecystitis Acute cholelithiasis Primary hypertension Dyslipidemia GERD Discharge Disposition: Acute Care Facility SNF Discharge Will this Physician continue t: No Discharge Instruct/Medications Diet: Consistent carbohydrate, Cardiac 2g Na,low cholest Activity: No Restrictions, As Tolerated Follow Up/Referral: F/U with his PCP after discharge F/U with Cardiology Medications: Lisinopril 10 mg po qd levothyroxine 100 mcg po qd Continue current in hospital medications. Scheduled Gabapentin (Gabapentin), 1 CAP PO TID, (Reported) Hydrocodone-Acetaminophen (Hydrocodone/Acetaminophen 5-325 mg), 1 TAB PO Q6HPRN, (Reported) Isosorbide Mononitrate (Isosorbide Mononitrate Er), 1 TAB PO DAILY, (Reported) Levothyroxine Sodium (Levothyroxine Sodium), 175 MCG PO QAM, (Reported) Lisinopril (Lisinopril), 1 TAB PO DAILY, (Reported) Simvastatin (Simvastatin), 1 TAB PO QPM, (Reported) Miscellaneous Medications Insulin NPH (Human) (Isophane) (Humulin N), 100 UNIT SC, (Reported) Discharge Statement: "Patient was advised to return to the ER or call 911 if any headaches, dizziness, shortness of breath, chest pain, abdominal pain, bleeding, fevers, or worsening of medical condition. Patient was counseled about treatment plan, medications, possible side effects, patientverbalized understanding. All questions were answered to the best of my ability. This discharge took greater then 30 minutes in planning, reviewing documentation, counseling the patient, and discussing with other team members." ASSESSMENT ASSESSMENT Assessment Acute chest pain likely due to acute coronary syndrome NSTEMI likely type 1 Sinus bradycardia with first-degree AV block Acute abdominal pain likely due to acute cholecystitis Chronic Cholecystitis Acute cholelithiasis Primary hypertension Dyslipidemia GERD Date of Service: Sep 06, 2024 Billing Provider: HERMELINDA ALVAREZ MD Common Visit Codes: 88554-IXX/OBS DISCH DAY >30min JOSE SORENSEN Sep 06, 2024 14:36 HERMELINDA ALVAREZ MD Sep 12, 2024 21:14
== END 2024-09-06 20:55 | disposition short-term general hospital (02) | DRG 281 ==
LOC: ER 00:13 → EDSEX 00:13 → EDBD 00:13 → OVERFLOW 10:34 → TELE-CENTR 13:02
PROVIDERS: ADMIT Student in an Organized Health Care Education/Training Program; ATTEND Student in an Organized Health Care Education/Training Program
PROC: 4A023N7 Measurement of Cardiac Sampling and Pressure, Left Heart, Percutaneous Approach (ICD-10-PCS; principal; 2024-09-02)
PROC: B211YZZ Fluoroscopy of Multiple Coronary Arteries using Other Contrast (ICD-10-PCS; 2024-09-02)
DX: I21.4 Non-ST elevation (NSTEMI) myocardial infarction (principal); K80.12 Calculus of gallbladder with acute and chronic cholecystitis without obstruction; N30.00 Acute cystitis without hematuria; D64.9 Anemia, unspecified; E78.5 Hyperlipidemia, unspecified; E07.9 Disorder of thyroid, unspecified; I44.0 Atrioventricular block, first degree; I10 Essential (primary) hypertension; I25.10 Atherosclerotic heart disease of native coronary artery without angina pectoris; K21.9 Gastro-esophageal reflux disease without esophagitis; S31.000A Unspecified open wound of lower back and pelvis without penetration into retroperitoneum, initial encounter; L89.151 Pressure ulcer of sacral region, stage 1; Z99.3 Dependence on wheelchair; Z88.0 Allergy status to penicillin; Z79.899 Other long term (current) drug therapy; Z83.3 Family history of diabetes mellitus; X58.XXXA Exposure to other specified factors, initial encounter; Y93.89 Activity, other specified; Y92.89 Other specified places as the place of occurrence of the external cause; Y99.8 Other external cause status
CPT/HCPCS: 36415; 71045; 74176; 76705; 78226; 80048; 80053; 80061; 80307; 81001; 82962; 83036; 83605; 83735; 83880; 84439; 84443; 84484; 85025; 85379; 85610; 85730; 86850; 86900; 86901; 87077; 87186; 87205; 87426; 87804; 93005; 93306; 93458; 99152; 99291; G0378; J2250; J2405; J2470; J3490